=== PATIENT | male | born 1985 | race African-American/Black ===

== ENCOUNTER 2022-04-10 12:13 | Inpatient (IN) | payer MEDICARE, SELFPAY ==
--- NOTE | 2022-04-10 | ECG_ITS ---
Test Reason : CHEST PAIN Blood Pressure : / mmHG Vent. Rate : 058 BPM Atrial Rate : 058 BPM P-R Int : 180 ms QRS Dur : 094 ms QT Int : 412 ms P-R-T Axes : 052 028 006 degrees QTc Int : 404 ms Sinus bradycardia Otherwise normal ECG No previous ECGs available Referred By: Kiki Hays Electronically Signed By:LIDA KILGORE
--- NOTE | 2022-04-10 12:17 | ED.PSYCH ---
HPI - Psych General Chief Complaint: Psychiatric Symptoms Stated Complaint: SEC 12,PSYCHOSIS W/SI,NON MED COMP PER [facility] Time Seen by Provider: 04/10/22 12:16 Source: patient and EMS Mode of arrival: EMS Limitations: no limitations History of Present Illness HPI Narrative: 36-year-old male with a history of schizoaffective who presents to the ER via EMS from [facility] clinic on a section 12 for paranoia, suicidal ideation. He has been off of his psychiatric medications for an unknown amount of time. He reports voices telling him to harm himself. He is anxious and is reporting intermittent central chest pains. He states the pain started 2 days ago while watching videos on his phone. He denies SOB. He presents on a section 12 as an inpatient bed search. MD complaint: suicidal ideation Onset (ago): unknown Duration: getting worse History of same: Yes Relieving factors: none Exacerbating factors: none Context: not taking psychiatric medications Associated psychiatric symptoms: depression, suicidal ideation and auditory hallucinations Associated symptoms: insomnia and other (chest pain) Treatments prior to arrival: placed on mental health hold If self harm: admits thoughts of self harm Related Data Allergies Allergy/AdvReac Type Severity Reaction Status Date / Time No Known Allergies Allergy Verified 04/10/22 12:57 Review of Systems Review of Systems: Constitutional: No Fever, No Chills ENT/Mouth: No sore throat, No Rhinorrhea, No Swallowing Difficulty Eyes: No Eye Pain, No Swelling, No Redness Cardiovascular: + Chest Pain, No SOB, No Orthopnea, No Edema Respiratory: No Cough, No Sputum, No Wheezing, No dyspnea Gastrointestinal: No Nausea, No Vomiting, No Diarrhea, No abdominal Pain Genitourinary: No Dysuria, No Urinary Frequency, No Hematuria Musculoskeletal: No joint pain, No Myalgias Skin: No Skin Lesions, No rash Neuro: No Weakness, No Numbness, No Dizziness, No Headache Psych: + Anxiety/Panic, + Depression, +SI, +AH, No VH, No HI Heme/Lymph: No Bruising, No Lymphadenopathy Endocrine: No Polyuria, No Polydipsia PMFSH Social History Social History Advance Directives: No Advance Directives Information Provided: No Physical Exam Vital Signs: Vital Signs: Last Vital Signs Temp 97.7 F 04/10/22 14:23 Pulse 71 04/10/22 14:23 Resp 18 04/10/22 14:23 BP 154/105 H 04/10/22 14:23 Pulse Ox 98 04/10/22 14:23 O2 Del Method 04/10/22 14:23 BMI result Body Mass Index 36.7 Appearance: Alert. Oriented X3. No acute distress. Eyes: Pupils equal, round and reactive to light. ENT: Pharynx normal. Neck: Normal inspection. Neck supple. CVS: Normal heart rate and rhythm. Pulses normal. No chest wall tenderness. Respiratory: No respiratory distress. Breath sounds normal. Abdomen: Soft and nontender. +BS x4 Skin: Skin warm and dry. Normal skin color. Normal skin turgor. No rashes. Extremities: No lower extremity edema. No evidence of track bowman. Neuro: Oriented X 3. No motor deficit. No sensory deficit. CN II-XII intact. Psych: makes eye contact, cooperative, poor insight and judgment. Course Course Course Narrative: 36 y/o male with history of schizoaffective disorder noncompliant with medications recently who presents with auditory hallucinations, paranoia and suicidal ideation. He is already on a section 12 inpatient bed search. Will get EKG and medically clear. Reevaluation(s) Reevaluation #1: Troponin 5.7. EKG without ischemic changes. No need to repeat troponin given pains have been intermittent for the last 2 days. Not cardiac in nature. P.r.n. Tylenol ordered. Will place in physician observation at this time. Physician observation started at 13:52. Patient placed in physician observation because patient is a section 12 inpatient psych bed search. At the time observation was started patient's vital signs were stable. Patient is alert and oriented. Neuro exam is non-focal. CV: RRR and lungs are clear. Will continue to monitor. Time: 13:52 [facility] - Psych Medical Records Attestation: I reviewed the patient's medical records. Lab Data Attestation: I reviewed the patient's lab results. Result diagrams: 04/10/22 13:19 04/10/22 13:19 Labs: Lab Results 04/10/22 04/10/22 04/10/22 Range/Units 13:19 13:19 13:19 WBC 5.3 (4.8-10.8) X10*3/uL RBC 4.86 (4.60-5.80) X10*6/uL Hgb 15.2 (14.0-18.0) g/dl Hct 44.1 (42.0-52.0) % MCV 90.7 (80.0-98.0) fL MCH 31.3 (27.0-33.0) pg MCHC 34.5 (31.0-36.0) g/dl RDW 12.9 (11.0-16.0) % Plt Count 214 (160-400) X10*3/uL MPV 9.5 (9.4-12.4) fL Immature Gran % (Auto) 0.2 (0.0-0.4) % Neut % (Auto) 44.2 L (45-73) % Lymph % (Auto) 32.3 (20-40) % [place] % (Auto) 14.6 H (2-11) % Eos % (Auto) 7.6 H (0-4) % Baso % (Auto) 1.1 (0-2) % Lymph # (Auto) 1.7 (1.2-4.9) X10*3/uL [place] # (Auto) 0.8 (0.1-1.2) X10*3/uL Eos # (Auto) 0.4 (0.0-0.4) X10*3/uL Baso # (Auto) 0.1 (0.0-0.2) X10*3/uL Abs Immat Gran (auto) 0.01 (0.00-0.03) X10*3/uL Absolute Neuts (auto) 2.3 (2.0-8.3) x10*3/uL Absolute Nucleated RBC 0.000 (0.0-0.012) X10*3/uL Nucleated RBC % (auto) 0.0 (0.0-0.2) /100WBC Sodium 134 L (135-145) mmol/L Potassium 4.4 (3.3-5.1) mmol/L Chloride 100 (96-108) mmol/L Carbon Dioxide 26 (22-29) mmol/L Anion Gap 12 (12-20) BUN 8 L (9-16) mg/dL Creatinine 0.92 (0.5-1.4) mg/dL Estim Creat Clear Calc TNP Estimated GFR > 60 Random Glucose 96 (60-115) mg/dL Calcium 8.9 (8.4-10.2) mg/dL Magnesium 2.3 (1.6-2.6) mg/dL Total Bilirubin 0.5 (0.0-1.0) mg/dL Direct Bilirubin 0.2 (0.0-0.5) mg/dL AST 20 (5-37) U/L ALT 27 (0-40) U/L Alkaline Phosphatase 61 (39-117) U/L Troponin I High Sens (<3.5-35.0) ng/L Total Protein 7.2 (6.5-8.0) g/dL Albumin 4.2 (3.5-5.0) g/dL Urine Opiates Screen (Not Detect) Urine Fentanyl Screen (Not Detect) Ur Barbiturates Screen (Not Detect) Ur Phencyclidine Scrn (Not Detect) Ur Amphetamines Screen (Not Detect) U Benzodiazepines Scrn (Not Detect) Urine Cocaine Screen (Not Detect) U Marijuana (THC) Screen (Not Detect) Ethyl Alcohol mg/dL COVID-19 ([facility]) Negative (Negative) COVID-19 Clin Com See Note 04/10/22 04/10/22 04/10/22 Range/Units 13:19 13:19 13:19 WBC (4.8-10.8) X10*3/uL RBC (4.60-5.80) X10*6/uL Hgb (14.0-18.0) g/dl Hct (42.0-52.0) % MCV (80.0-98.0) fL MCH (27.0-33.0) pg MCHC (31.0-36.0) g/dl RDW (11.0-16.0) % Plt Count (160-400) X10*3/uL MPV (9.4-12.4) fL Immature Gran % (Auto) (0.0-0.4) % Neut % (Auto) (45-73) % Lymph % (Auto) (20-40) % [place] % (Auto) (2-11) % Eos % (Auto) (0-4) % Baso % (Auto) (0-2) % Lymph # (Auto) (1.2-4.9) X10*3/uL [place] # (Auto) (0.1-1.2) X10*3/uL Eos # (Auto) (0.0-0.4) X10*3/uL Baso # (Auto) (0.0-0.2) X10*3/uL Abs Immat Gran (auto) (0.00-0.03) X10*3/uL Absolute Neuts (auto) (2.0-8.3) x10*3/uL Absolute Nucleated RBC (0.0-0.012) X10*3/uL Nucleated RBC % (auto) (0.0-0.2) /100WBC Sodium (135-145) mmol/L Potassium (3.3-5.1) mmol/L Chloride (96-108) mmol/L Carbon Dioxide (22-29) mmol/L Anion Gap (12-20) BUN (9-16) mg/dL Creatinine (0.5-1.4) mg/dL Estim Creat Clear Calc Estimated GFR Random Glucose (60-115) mg/dL Calcium (8.4-10.2) mg/dL Magnesium (1.6-2.6) mg/dL Total Bilirubin (0.0-1.0) mg/dL Direct Bilirubin (0.0-0.5) mg/dL AST (5-37) U/L ALT (0-40) U/L Alkaline Phosphatase (39-117) U/L Troponin I High Sens 5.7 (<3.5-35.0) ng/L Total Protein (6.5-8.0) g/dL Albumin (3.5-5.0) g/dL Urine Opiates Screen Not Detected (Not Detect) Urine Fentanyl Screen Not Detected (Not Detect) Ur Barbiturates Screen Not Detected (Not Detect) Ur Phencyclidine Scrn Not Detected (Not Detect) Ur Amphetamines Screen Not Detected (Not Detect) U Benzodiazepines Scrn Not Detected (Not Detect) Urine Cocaine Screen Not Detected (Not Detect) U Marijuana (THC) Screen POSITIVE H (Not Detect) Ethyl Alcohol < 10 mg/dL COVID-19 ([facility]) (Negative) COVID-19 Clin Com ECG Data Attestation: I personally reviewed and interpreted this ECG as follows: ECG interpretation date: 04/10/22 ECG interpretation time: 13:53 Interpretation: Sinus bradycardia, heart rate 58 beats per minute, normal [place] interval, no ST segment elevations or depressions. Isolated T-wave inversion in lead 3 only Critical Care Time Critical Care Time Critical Care Time: No Discharge Plan Discharge Clinical Impression: Schizoaffective disorder Patient Disposition: Still a Patient
[2022-04-10 13:25] LABS: MANUAL DIFF FLAG NO
[2022-04-10 13:27] LABS: Basophils Absolute Auto 0.1 X10*3/uL (0.0-0.2); Basophils Percent Auto 1.1 % (0-2); Eosinophils Absolute Auto 0.4 X10*3/uL (0.0-0.4); Eosinophils Percent Auto 7.6 % (0-4); Hematocrit 44.1 % (42.0-52.0); Hemoglobin 15.2 g/dl (14.0-18.0); Imm Gran Abs Auto 0.01 X10*3/uL (0.00-0.03); Imm Gran Pct Auto 0.2 % (0.0-0.4); Lymphocytes Absolute Auto 1.7 X10*3/uL (1.2-4.9); Lymphocytes Percent Auto 32.3 % (20-40); Mean Corpuscular HGB Conc 34.5 g/dl (31.0-36.0); Mean Corpuscular Hemoglobin 31.3 pg (27.0-33.0); Mean Corpuscular Volume 90.7 fL (80.0-98.0); Mean Platelet Volume 9.5 fL (9.4-12.4); Monocytes Absolute Auto 0.8 X10*3/uL (0.1-1.2); Monocytes Percent Auto 14.6 % (2-11); Neutrophils Absolute Auto 2.3 x10*3/uL (2.0-8.3); Neutrophils Percent Auto 44.2 % (45-73); Platelet Count 214 X10*3/uL (160-400); Red Blood Count 4.86 X10*6/uL (4.60-5.80); Red Cell Distribution Width 12.9 % (11.0-16.0); White Blood Count 5.3 X10*3/uL (4.8-10.8)
[2022-04-10 13:40] LABS: COVID-19 Test Negative (Negative); Ethanol < 10 mg/dL; IDNOW Serial# 16C4AD1C
[2022-04-10 13:41] LABS: Amphetamine Screen Urine Not Detected (Not Detect); Barbiturates, Urine Not Detected (Not Detect); Benzodiazepines Screen Urine Not Detected (Not Detect); Cannabinoid Screen Urine POSITIVE (Not Detect); Cocaine Screen Urine Not Detected (Not Detect); Fentanyl, urine Not Detected (Not Detect); Opiate Screen Urine Not Detected (Not Detect); Phencyclidine Screen Urine Not Detected (Not Detect)
[2022-04-10 13:43] LABS: Alanine Aminotransferase 27 U/L (0-40); Albumin Level 4.2 g/dL (3.5-5.0); Alkaline Phosphatase 61 U/L (39-117); Anion Gap 12 (12-20); Aspartate Amino Transferase 20 U/L (5-37); Bilirubin Direct 0.2 mg/dL (0.0-0.5); Bilirubin Total 0.5 mg/dL (0.0-1.0); Blood Urea Nitrogen 8 mg/dL (9-16); Calcium 8.9 mg/dL (8.4-10.2); Carbon Dioxide 26 mmol/L (22-29); Chloride 100 mmol/L (96-108); Estimated Glomerular Filt Rate > 60; Glucose Random 96 mg/dL (60-115); Magnesium 2.3 mg/dL (1.6-2.6); Potassium 4.4 mmol/L (3.3-5.1); Sodium 134 mmol/L (135-145); Total Protein 7.2 g/dL (6.5-8.0)
[2022-04-10 13:47] LABS: Troponin-I High Sensitivity 5.7 ng/L (<3.5-35.0)
[2022-04-10 14:23] VITALS: BP 154/105; BP 184/114; PULSE 71; PULSE 84; RESP 18; TEMP 36.5; O2SAT 97; O2SAT 98; BMI 36.7
--- NOTE | 2022-04-10 16:29 | MHC.CARE ---
Call from Kiki from the [facility] program, wanted to make sure her # is available [phone]
--- NOTE | 2022-04-10 16:54 | PHA.MEDREC ---
Pharmacy Consult ? Medication Reconciliation Pharmacy has completed the medication reconciliation. Pt states he only takes Cogentin and took his last dose yesterday 04/09/22.
--- NOTE | 2022-04-10 18:15 | PC.NURSE ---
Nurse to Nurse given to m3 rn
[2022-04-10 18:31] VITALS: BP 172/108; PULSE 59; RESP 16; TEMP 36.2; O2SAT 100
--- NOTE | 2022-04-10 19:33 | PC.ADMIT ---
Nursing Admission Note Toribio is a 36-year-old male who was evaluated by [facility] then referred to [facility] due to concerns of decompensation and psychosis. CV was signed and placed in chart. Pt endorses smoking marijuana daily to help with anxiety and sleep, tox screen was positive for marijuana. Pt said he smokes 2 cigarettes per day and is not interested in nicotine replacement. Per crisis eval, pt has been non-compliant with medication for the past few months. He reports seeing black shadow figures and hearing voices that are telling him to cut off his fingers/other limbs. Pt also reports difficulty with memory and concentration. Pt has a history of aggressive behaviors and past suicide attempts (cutting wrists and jumping off bridges). Pt has a history of being incarcerated [id number] for resisting arrest, carrying a dangerous weapon, violation of probation, and exposing himself in public. He was also incarcerated [id number] for charges of a stolen bike, reckless driving, and operation of a vehicle without documentation. During admission assessment, Toribio's speech was pressured, eye contact avoidant. He would frequently put his hands to his ears. Per crisis eval, pt's been having hearing problems in one of his ears where he hears loud noises then nothing at all. Pt was otherwise pleasant and cooperative upon approach. He denies SI/HI at this time but will reach out to staff if those thoughts occur.
--- NOTE | 2022-04-10 20:54 | P.HPPS_ITS ---
HPI Date of Service: 04/10/22 Chief Complaint: schizoaffective DO Sources of Information: patient interviewed, chart reviewed and crisis/core team assessment reviewed HPI Subjective Notes: Chairez Warning and Conditional Voluntary Healthcare Proxy: No Guardianship: No Medical Problems Affecting Mental Status: No Narrative: Toribio is a 36 y.o. Male who carries a dx of schizoaffective DO, depressive type. He presented to [facility] crisis on 04/10/22 after his provider from his PA[facility] program called requesting an assessment due to pt presenting as paranoid, psychotic, not taking his medication, and hearing voices telling him to cut off his fingers and other limbs. Pt has been non-adherent with risperdal for 4-5 months. No Familia?s Order. Historically, pt is higher functioning on antipsychotic medication, i.e. good with paying rent and child support, but recently he has n ot paid his rent.? I evaluated the pt this evening and upon interview he reports he is still hearin g voices. He is ?tired, I just wanna lay down.? Declines to engage in interview. Says he feels safe, denies SI/SIB. Sleep has been ?alright.? Mood is ?alright.?? Past Psychiatric History: -Has hx of impulsive suicide attempt- jumped off [employer] [address] and another time was found walking on railroad tracks disorganized and delusional with SI. -Past med trials: Haldol, perphenazine, Abilify and Risperdal (TD, grimace that involved his lower lip), Ingrezza (insomnia and headaches), Zyprexa (GI side effects) -Hx of multiple psych admissions, last [facility] 12/01/2017-12/24/2017, [facility] 07/08/2017-07/14/2017, [facility] [id number], [facility] 07/22/2007-08/17/2007 Medical Evaluation Reviewed: Yes [facility] Narrative: -Hx of Psoriasis. Pt reported hearing problems in one of his ears where he hears loud noises and then nothing at all. Social History: -Pt rents a room at a house with two other people. -Pt has two children, ages 14 and 17, minimal contact with them. -Graduated from [employer] in [place], [place]. Attended [employer] -Hx of being employed at [employer], and [employer]. Currently not working but engages in recreational activities with the [facility] program. -Hx of incarceration 09/06/2016- 12/16/2018 for resisting arrest, carrying a dangerous weapon, violation of probation, and open lewd behavior (exposing himself). He was also incarcerated 11/02/2006-11/02/2007 for charges of a stolen bike, reckless driving, and operation of vehicle without documentation. -Hx of his child's mother filing a restraining order against him in July 2020 Substance History: -Cannabis: Used cannabis two days ago to help with the voices . -Alcohol: denies abuse, last drank maybe two days ago . -Hx of crack cocaine use. Trauma History: -Pt father left the family when he was young and when he was in elementary school Diagnostics Vital Signs (24Hr): Vital Signs - 24 hr 04/10/22 14:23 04/10/22 18:31 Temperature 97.7 F 97.2 F Pulse Rate 71 59 Respiratory Rate 18 16 Blood Pressure 154/105 H 172/108 H Pulse Oximetry 98 100 Oxygen Delivery Method Room Air Room Air BMI result Body Mass Index 36.7 Labs Results: 04/10/22 13:19 04/11/22 07:16 Labs: Laboratory Results - last 48 hr 04/10/22 04/10/22 04/10/22 13:19 13:19 13:19 WBC 5.3 RBC 4.86 Hgb 15.2 Hct 44.1 MCV 90.7 MCH 31.3 MCHC 34.5 RDW 12.9 Plt Count 214 MPV 9.5 Immature Gran % (Auto) 0.2 Neut % (Auto) 44.2 L Lymph % (Auto) 32.3 [place] % (Auto) 14.6 H Eos % (Auto) 7.6 H Baso % (Auto) 1.1 Lymph # (Auto) 1.7 [place] # (Auto) 0.8 Eos # (Auto) 0.4 Baso # (Auto) 0.1 Abs Immat Gran (auto) 0.01 Absolute Neuts (auto) 2.3 Absolute Nucleated RBC 0.000 Nucleated RBC % (auto) 0.0 Sodium 134 L Potassium 4.4 Chloride 100 Carbon Dioxide 26 Anion Gap 12 BUN 8 L Creatinine 0.92 Estim Creat Clear Calc TNP Estimated GFR > 60 Random Glucose 96 Calcium 8.9 Magnesium 2.3 Total Bilirubin 0.5 Direct Bilirubin 0.2 AST 20 ALT 27 Alkaline Phosphatase 61 Troponin I High Sens Total Protein 7.2 Albumin 4.2 Urine Opiates Screen Urine Fentanyl Screen Ur Barbiturates Screen Ur Phencyclidine Scrn Ur Amphetamines Screen U Benzodiazepines Scrn Urine Cocaine Screen U Marijuana (THC) Screen Ethyl Alcohol COVID-19 ([facility]) Negative COVID-19 Clin Com See Note 04/10/22 04/10/22 04/10/22 13:19 13:19 13:19 WBC RBC Hgb Hct MCV MCH MCHC RDW Plt Count MPV Immature Gran % (Auto) Neut % (Auto) Lymph % (Auto) [place] % (Auto) Eos % (Auto) Baso % (Auto) Lymph # (Auto) [place] # (Auto) Eos # (Auto) Baso # (Auto) Abs Immat Gran (auto) Absolute Neuts (auto) Absolute Nucleated RBC Nucleated RBC % (auto) Sodium Potassium Chloride Carbon Dioxide Anion Gap BUN Creatinine Estim Creat Clear Calc Estimated GFR Random Glucose Calcium Magnesium Total Bilirubin Direct Bilirubin AST ALT Alkaline Phosphatase Troponin I High Sens 5.7 Total Protein Albumin Urine Opiates Screen Not Detected Urine Fentanyl Screen Not Detected Ur Barbiturates Screen Not Detected Ur Phencyclidine Scrn Not Detected Ur Amphetamines Screen Not Detected U Benzodiazepines Scrn Not Detected Urine Cocaine Screen Not Detected U Marijuana (THC) Screen POSITIVE H Ethyl Alcohol < 10 COVID-19 ([facility]) COVID-19 Clin Com Meds/Allergies Meds Home Medications Medication Instructions Recorded Confirmed Type benztropine 1 mg tablet 1 tab PO BID 04/10/22 04/10/22 History Allergies Allergies Allergy/AdvReac Type Severity Reaction Status Date / Time No Known Allergies Allergy Verified 04/10/22 12:57 Mental Status Exam Mental Status Exam Narrative: A&O. Laying down in bed, in hospital attire, overweight. Poor eye contact, inattentive. No Tics or Tremors. No abnormal involuntary movements. Calm, but did not want to engage due to feeling tired. Non-pressured speech, spontaneous with regular rate and rhythm, normal volume and prosody. No prolonged speech latency or dysarthria. Mood is ?tired,? affect is flat. Denies SI/SIB/HI upon inquiry. Endorses command AH telling him to self harm, denies VH or delusional thought content. Thoughts are perseverative, distracted. No known cognitive or memory impairment. Insight/ Judgment limited but adequate. Assessment & Plan Assessment & Plan (1) Schizoaffective disorder, depressive type: Status: Acute Code(s): F25.1 - Schizoaffective disorder, depressive type Plan Toribio is a 36 y.o. Male who carries a dx of schizoaffective DO, depressive type. He presented to [facility] crisis on 04/10/22 after his provider from his PA[facility] program called requesting an assessment due to pt presenting as paranoid, psychotic, not taking his medication, and hearing voices telling him to cut off his fingers and other limbs. Pt has been non-adherent with risperdal for 4-5 months. No Familia?s Order. Historically, pt is higher functioning on antipsychotic medication, i.e. good with paying rent and child support, but recently he has not paid his rent.? Plan: Pt reports hx of adverse effects on antipsychotic medication. Says he has been on cogentin and he believes this helps with sleep. Willing to restart thorazine 100 mg QHS.? Q15 min safety checks, CV Monitor response to medications. Monitor for safety in the milieu. Discharge on stabilization. Patient seen. Chart reviewed. Discussed with team. Obtain collateral contact info?as needed Patient educated on: medication risk/benefits Reason for continued inpatient stay Substantial Risk for: harm to self, inability to function, rapid decompensation and med/psych decompensation
[2022-04-10] MEDS: chlorproMAZINE HCl 100 MG TABLET PO (21:12)
[2022-04-10] MEDS: traZODone HCL 50 MG TABLET PO (21:12)
[2022-04-10] MEDS: Benztropine Mesylate 1 MG TABLET PO (21:12)
[2022-04-10] MEDS: cloNIDine HCL 0.1 MG TABLET PO (21:16)
--- NOTE | 2022-04-11 | ECG_ITS ---
Test Reason : htn Blood Pressure : / mmHG Vent. Rate : 057 BPM Atrial Rate : 057 BPM P-R Int : 160 ms QRS Dur : 102 ms QT Int : 414 ms P-R-T Axes : 051 026 -02 degrees QTc Int : 402 ms Sinus bradycardia Otherwise normal ECG When compared with ECG of 10-APR-2022 12:55, No significant change was found Referred By: Nhan Zhou Electronically Signed By:LIDA KILGORE
[2022-04-11 07:52] LABS: Estimated Average Glucose 128 mg/dL; Hemoglobin A1c % 6.1 %
[2022-04-11 08:06] LABS: Alanine Aminotransferase 29 U/L (0-40); Albumin Level 4.3 g/dL (3.5-5.0); Alkaline Phosphatase 66 U/L (39-117); Anion Gap 14 (12-20); Aspartate Amino Transferase 20 U/L (5-37); Bilirubin Total 0.5 mg/dL (0.0-1.0); Blood Urea Nitrogen 11 mg/dL (9-16); Carbon Dioxide 28 mmol/L (22-29); Chloride 99 mmol/L (96-108); Cholesterol 209 mg/dL; Creatinine Clr Calc Pharmacy 141.1; Estimated Glomerular Filt Rate > 60; Glucose Fasting 105 mg/dL (60-99); HDL Cholesterol 40 mg/dL; Magnesium 2.1 mg/dL (1.6-2.6); Potassium 4.3 mmol/L (3.3-5.1); Sodium 137 mmol/L (135-145); Total Protein 7.6 g/dL (6.5-8.0); Triglycerides 532 mg/dL
[2022-04-11 08:23] VITALS: BP 137/93; PULSE 75; RESP 16; TEMP 36.6; O2SAT 99
[2022-04-11 08:23] LABS: Free T4 (Free Thyroxine) 0.84 ng/dL (0.71-1.85); Thyroid Stimulating Hormone 4.79 uIU/mL (0.32-4.0)
[2022-04-11 08:55] LABS: Folate 11.4 ng/mL (> or = 4.0); Vitamin B12 201 pg/mL (200-900)
[2022-04-11 10:12] VITALS: BP 165/106; PULSE 64
[2022-04-11] MEDS: Benztropine Mesylate 1 MG TABLET PO ×2 (10:15→22:20)
[2022-04-11] MEDS: cloNIDine HCL 0.1 MG TABLET PO ×3 (10:15→15:26)
[2022-04-11] MEDS: chlorproMAZINE HCl 100 MG TABLET PO ×2 (12:29→22:20)
[2022-04-11 15:15] VITALS: BP 182/102
--- NOTE | 2022-04-11 16:05 | HO.PSYCHPN ---
Subjective Subjective Date of Service: 04/11/22 Reason For Visit: schizoaffective DO Interim History: pt calm, cooperative, pleasant. asking for hydrocortisone for hand psoriasis. 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 feels he is in a good mood, still having some thoughts of cutting part of his finger off due to pain which he associates with the psoriasis. reports some illusions of black figures moving in his peripheral vision, nothing there when he turns to look directly. clonidine increased from 0.1 TID to 0.2 TID due to persistent HTN. thorazine doubled today to 100 BID. hydrocortisone and lozenges started. discuss elevated TSH. per staff, presented pressured with poor eye contact, AH, cooperative. per staff, pt did not sleep at all overnight. Mental Status Exam Mental Status Exam Narrative: large, tall man. adequately dressed in hospital clothes. cooperative. no PMA/PMR. speech nml in rate, amount, loudness, tone, latency. thoughts linear and logical, affect full range and normointense. mood very good. endorses AH and SIBI, illusions. denies HI/VH. Diagnostics Vital Signs (24Hr): Vital Signs - 24 hr 04/10/22 18:31 04/11/22 08:23 04/11/22 10:12 Temperature 97.2 F 97.9 F Pulse Rate 59 75 64 Respiratory Rate 16 16 Blood Pressure 172/108 H 137/93 H 165/106 H Pulse Oximetry 100 99 Oxygen Delivery Method Room Air Room Air 04/11/22 15:15 Temperature Pulse Rate Respiratory Rate Blood Pressure 182/102 H Pulse Oximetry Oxygen Delivery Method BMI result Body Mass Index 36.7 Labs Results: 04/10/22 13:19 04/11/22 07:16 Labs: Laboratory Results - last 48 hr 04/10/22 04/10/22 04/10/22 13:19 13:19 13:19 WBC 5.3 RBC 4.86 Hgb 15.2 Hct 44.1 MCV 90.7 MCH 31.3 MCHC 34.5 RDW 12.9 Plt Count 214 MPV 9.5 Immature Gran % (Auto) 0.2 Neut % (Auto) 44.2 L Lymph % (Auto) 32.3 Isabella % (Auto) 14.6 H Eos % (Auto) 7.6 H Baso % (Auto) 1.1 Lymph # (Auto) 1.7 Isabella # (Auto) 0.8 Eos # (Auto) 0.4 Baso # (Auto) 0.1 Abs Immat Gran (auto) 0.01 Absolute Neuts (auto) 2.3 Absolute Nucleated RBC 0.000 Nucleated RBC % (auto) 0.0 Sodium 134 L Potassium 4.4 Chloride 100 Carbon Dioxide 26 Anion Gap 12 BUN 8 L Creatinine 0.92 Estim Creat Clear Calc TNP Estimated GFR > 60 Random Glucose 96 Fasting Glucose Estimat Average Glucose Hemoglobin A1c % Calcium 8.9 Magnesium 2.3 Total Bilirubin 0.5 Direct Bilirubin 0.2 AST 20 ALT 27 Alkaline Phosphatase 61 Troponin I High Sens Total Protein 7.2 Albumin 4.2 Triglycerides Cholesterol LDL Cholesterol, Calc HDL Cholesterol Vitamin B12 Folate TSH Free T4 Urine Opiates Screen Urine Fentanyl Screen Ur Barbiturates Screen Ur Phencyclidine Scrn Ur Amphetamines Screen U Benzodiazepines Scrn Urine Cocaine Screen U Marijuana (THC) Screen Ethyl Alcohol COVID-19 ([facility]) Negative COVID-19 Clin Com See Note 04/10/22 04/10/22 04/10/22 13:19 13:19 13:19 WBC RBC Hgb Hct MCV MCH MCHC RDW Plt Count MPV Immature Gran % (Auto) Neut % (Auto) Lymph % (Auto) Isabella % (Auto) Eos % (Auto) Baso % (Auto) Lymph # (Auto) Isabella # (Auto) Eos # (Auto) Baso # (Auto) Abs Immat Gran (auto) Absolute Neuts (auto) Absolute Nucleated RBC Nucleated RBC % (auto) Sodium Potassium Chloride Carbon Dioxide Anion Gap BUN Creatinine Estim Creat Clear Calc Estimated GFR Random Glucose Fasting Glucose Estimat Average Glucose Hemoglobin A1c % Calcium Magnesium Total Bilirubin Direct Bilirubin AST ALT Alkaline Phosphatase Troponin I High Sens 5.7 Total Protein Albumin Triglycerides Cholesterol LDL Cholesterol, Calc HDL Cholesterol Vitamin B12 Folate TSH Free T4 Urine Opiates Screen Not Detected Urine Fentanyl Screen Not Detected Ur Barbiturates Screen Not Detected Ur Phencyclidine Scrn Not Detected Ur Amphetamines Screen Not Detected U Benzodiazepines Scrn Not Detected Urine Cocaine Screen Not Detected U Marijuana (THC) Screen POSITIVE H Ethyl Alcohol < 10 COVID-19 ([facility]) COVID-19 Clin Com 04/11/22 04/11/22 04/11/22 07:16 07:16 07:16 WBC RBC Hgb Hct MCV MCH MCHC RDW Plt Count MPV Immature Gran % (Auto) Neut % (Auto) Lymph % (Auto) Isabella % (Auto) Eos % (Auto) Baso % (Auto) Lymph # (Auto) Isabella # (Auto) Eos # (Auto) Baso # (Auto) Abs Immat Gran (auto) Absolute Neuts (auto) Absolute Nucleated RBC Nucleated RBC % (auto) Sodium 137 Potassium 4.3 Chloride 99 Carbon Dioxide 28 Anion Gap 14 BUN 11 Creatinine 0.97 Estim Creat Clear Calc 141.1 Estimated GFR > 60 Random Glucose Fasting Glucose 105 H Estimat Average Glucose 128 Hemoglobin A1c % 6.1 Calcium 10.0 D Magnesium 2.1 Total Bilirubin 0.5 Direct Bilirubin AST 20 ALT 29 Alkaline Phosphatase 66 Troponin I High Sens Total Protein 7.6 Albumin 4.3 Triglycerides 532 Cholesterol 209 LDL Cholesterol, Calc TNP HDL Cholesterol 40 Vitamin B12 201 Folate 11.4 TSH 4.79 H Free T4 0.84 Urine Opiates Screen Urine Fentanyl Screen Ur Barbiturates Screen Ur Phencyclidine Scrn Ur Amphetamines Screen U Benzodiazepines Scrn Urine Cocaine Screen U Marijuana (THC) Screen Ethyl Alcohol COVID-19 ([facility]) COVID-19 Clin Com Medications Medications Current Medications Acetaminophen (Acetaminophen 325 Mg Tablet) 975 mg PO Q6H PRN PRN Reason: mild pain Acetaminophen (Acetaminophen 325 Mg Tablet) 650 mg PO Q6H PRN PRN Reason: Headache/Pain Mild Scale (1-3) Al Hydroxide/Mg Hydroxide (Magnesium Hydrox/Alum Hydrox 30 Ml Oral.Susp) 30 ml PO Q6H PRN PRN Reason: Heartburn/Nausea Benzocaine (Throat Lozenge, Medicated Lozenge) 1 lozenge MUCOUS MEM Q2H PRN PRN Reason: Sore Throat or dry throat Benztropine Mesylate (Benztropine Mesylate 1 Mg Tablet) 1 mg PO BID [facility] Last Admin: 04/11/22 10:15 Dose: 1 mg Chlorpromazine HCl (Chlorpromazine Hcl 100 Mg Tablet) 100 mg PO BID [facility] Last Admin: 04/11/22 12:29 Dose: 100 mg Clonidine HCl (Clonidine Hcl 0.2 Mg Tablet) 0.2 mg PO TID [facility]; Protocol Hydrocortisone (Hydrocortisone 1 % Cream 28.35 Gm Tube) 1 appl TOPICAL BID [facility]; Protocol Hydroxyzine HCl (Hydroxyzine Hcl 25 Mg Tablet) 25 mg PO Q6H PRN PRN Reason: Anxiety Levothyroxine Sodium (Levothyroxine Sodium 25 Mcg Tablet) 25 mcg PO DAILY@0600 [facility] Magnesium Hydroxide (Milk Of Magnesia 30 Ml Oral.Susp) 30 ml PO DAILY PRN PRN Reason: Constipation Trazodone HCl (Trazodone Hcl 50 Mg Tablet) 50 mg PO BEDTIME PRN PRN Reason: Insomnia Last Admin: 04/10/22 21:12 Dose: 50 mg Allergies Allergies Allergy/AdvReac Type Severity Reaction Status Date / Time No Known Allergies Allergy Verified 04/10/22 12:57 Assessment & Plan Assessment & Plan (1) Schizoaffective disorder: Status: Acute Code(s): F25.9 - Schizoaffective disorder, unspecified (2) Thyroid activity decreased: Status: Acute Code(s): E03.9 - Hypothyroidism, unspecified Plan increased thorazine from 100 mg QHS to 100 mg BID 04/11 for psychosis. hydrocortisone for hand psoriasis cepacol lozenges for dry mucous membranes synthroid 25 mcg daily for subclinical hypothyroidism monitor sleep and more aggressively approach insomnia if pt does not begin to sleep better. I spent ___35___ minutes with the patient and/or on the patient floor today, greater than?50% of which was spent counseling/coordinating care. Reason for contiued inpatient stay Substantial Risk for: harm to self, inability to function and rapid decompensation
[2022-04-11 16:15] VITALS: BP 152/89; PULSE 80
[2022-04-11] MEDS: Levothyroxine Sodium 25 MCG TABLET PO (16:44)
[2022-04-11 22:12] VITALS: BP 137/94; PULSE 79; RESP 18; TEMP 36.7; O2SAT 98
[2022-04-11] MEDS: Hydrocortisone 1 % Cream 28.35 GM TUBE 1 APPL TOPICAL (22:19)
[2022-04-11] MEDS: hydrOXYzine HCL 25 MG TABLET PO (22:20)
[2022-04-11] MEDS: cloNIDine HCL 0.2 MG TABLET PO (22:20)
[2022-04-11] MEDS: traZODone HCL 50 MG TABLET PO (22:21)
[2022-04-12] MEDS: Levothyroxine Sodium 25 MCG TABLET PO (06:02)
--- NOTE | 2022-04-12 07:21 | P.PNPSI_ITS ---
Subjective Subjective Date of Service: 04/12/22 Reason For Visit: schizoaffective DO Subjective Notes: Conditional Voluntary Interim History: Pt pleasant and polite on approach. he reports hearing voices telling him to hurt himself. He denies any plan or intent to hurt hhimself. He is taking thorazine, asked if he wanted increase in nighttime dose but he declines. He continues to walk in [place] talking to voices at times loud but able to be redirected. No behavioral concerns. 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 Laying down in bed, in hospital attire, overweight. Poor eye contact, inattentive. No Tics or Tremors. No abnormal involuntary movements. Calm, but did not want to engage due to feeling tired. Non-pressured speech, spontaneous with regular rate and rhythm, normal volume and prosody. No prolonged speech latency or dysarthria. Mood is ?tired,? affect is flat. Denies SI/SIB/HI upon inquiry. Endorses command AH telling him to self harm, denies VH or delusional thought content. Thoughts are perseverative, distracted. No known cognitive or memory impairment. Insight/ Judgment limited but adequate. Diagnostics Vital Signs (24Hr): Vital Signs - 24 hr 04/13/22 21:00 Temperature 97.8 F Pulse Rate 104 H Respiratory Rate 16 Blood Pressure 144/89 H Pulse Oximetry 99 Oxygen Delivery Method Room Air BMI result Body Mass Index 36.7 Labs Results: 04/10/22 13:19 04/11/22 07:16 Medications Medications Current Medications Acetaminophen (Acetaminophen 325 Mg Tablet) 975 mg PO Q6H PRN PRN Reason: mild pain Al Hydroxide/Mg Hydroxide (Magnesium Hydrox/Alum Hydrox 30 Ml Oral.Susp) 30 ml PO Q6H PRN PRN Reason: Heartburn/Nausea Benzocaine (Throat Lozenge, Medicated Lozenge) 1 lozenge MUCOUS MEM Q2H PRN PRN Reason: Sore Throat or dry throat Benztropine Mesylate (Benztropine Mesylate 1 Mg Tablet) 1 mg PO BID [facility] Last Admin: 04/13/22 21:00 Dose: 1 mg Chlorpromazine HCl (Chlorpromazine Hcl 100 Mg Tablet) 100 mg PO BID [facility] Last Admin: 04/13/22 21:01 Dose: 100 mg Clonidine HCl (Clonidine Hcl 0.2 Mg Tablet) 0.2 mg PO TID [facility]; Protocol Last Admin: 04/13/22 21:00 Dose: 0.2 mg Hydrocortisone (Hydrocortisone 1 % Cream 28.35 Gm Tube) 1 appl TOPICAL BID [facility]; Protocol Last Admin: 04/13/22 22:13 Dose: Not Given Hydroxyzine HCl (Hydroxyzine Hcl 25 Mg Tablet) 25 mg PO Q6H PRN PRN Reason: Anxiety Last Admin: 04/12/22 21:03 Dose: 25 mg Levothyroxine Sodium (Levothyroxine Sodium 25 Mcg Tablet) 25 mcg PO DAILY@0600 [facility] Last Admin: 04/13/22 05:51 Dose: 25 mcg Magnesium Hydroxide (Milk Of Magnesia 30 Ml Oral.Susp) 30 ml PO DAILY PRN PRN Reason: Constipation Trazodone HCl (Trazodone Hcl 50 Mg Tablet) 50 mg PO BEDTIME PRN PRN Reason: Insomnia Last Admin: 04/12/22 21:03 Dose: 50 mg Allergies Allergies Allergy/AdvReac Type Severity Reaction Status Date / Time No Known Allergies Allergy Verified 04/10/22 12:57 Assessment & Plan Assessment & Plan (1) Schizoaffective disorder, depressive type: Status: Acute Code(s): F25.1 - Schizoaffective disorder, depressive type Plan Toribio is a 36 y.o. Male who carries a dx of schizoaffective DO, depressive type. He presented to [facility] crisis on 04/10/22 after his provider from his PACT program called requesting an assessment due to pt presenting as paranoid, psychotic, not taking his medication, and hearing voices telling him to cut off his fingers and other limbs. Pt has been non-adherent with risperdal for 4-5 months. No Familia?s Order. Historically, pt is higher functioning on antipsychotic medication, i.e. good with paying rent and child support, but recently he has not paid his rent.? Plan: Pt reports hx of adverse effects on antipsychotic medication. Says he has been on cogentin and he believes this helps with sleep. Willing to restart thorazine 100 mg QHS.? Q15 min safety checks, CV Monitor response to medications. Monitor for safety in the milieu. Discharge on stabilization. Patient seen. Chart reviewed. Discussed with team. Obtain collateral contact info?as needed 04/12 continue current tx. per Alta Kaba from [facility] pt with hx of TD with risperidone, used to be on ingrezza. I spent minutes with the patient and/or on the patient floor today, greater than?50% of which was spent counseling/coordinating care. Reason for contiued inpatient stay Substantial Risk for: inability to function
[2022-04-12 08:00] VITALS: BP 130/82; PULSE 74; RESP 16; TEMP 36.4; O2SAT 98
[2022-04-12] MEDS: Benztropine Mesylate 1 MG TABLET PO ×2 (08:48→21:03)
[2022-04-12] MEDS: cloNIDine HCL 0.2 MG TABLET PO ×3 (08:48→21:02)
[2022-04-12] MEDS: chlorproMAZINE HCl 100 MG TABLET PO ×2 (08:48→21:02)
[2022-04-12] MEDS: Hydrocortisone 1 % Cream 28.35 GM TUBE 1 APPL TOPICAL ×2 (08:49→21:02)
[2022-04-12 21:00] VITALS: BP 143/89; PULSE 88; RESP 18; TEMP 36.7; O2SAT 99
[2022-04-12] MEDS: hydrOXYzine HCL 25 MG TABLET PO (21:03)
[2022-04-12] MEDS: traZODone HCL 50 MG TABLET PO (21:03)
[2022-04-13] MEDS: Levothyroxine Sodium 25 MCG TABLET PO (05:51)
[2022-04-13 06:00] VITALS: BP 129/89; PULSE 92; RESP 18; TEMP 36.6; O2SAT 96
[2022-04-13] MEDS: cloNIDine HCL 0.2 MG TABLET PO ×3 (07:53→21:00)
[2022-04-13] MEDS: chlorproMAZINE HCl 100 MG TABLET PO ×2 (07:54→21:01)
[2022-04-13] MEDS: Benztropine Mesylate 1 MG TABLET PO ×2 (07:54→21:00)
[2022-04-13] MEDS: Hydrocortisone 1 % Cream 28.35 GM TUBE 1 APPL TOPICAL (07:55)
--- NOTE | 2022-04-13 10:23 | P.PNPSI_ITS ---
Subjective Subjective Date of Service: 04/13/22 Reason For Visit: schizoaffective DO Interim History: Pt continues to talk to voices most of the time. He reports voices continue to cause significant distress as they are telling him to hurt himself but he denies any plan or intent to do so. At times seen yelling at voices telling them to stop. He declines increase in dose of thorazine at this point. 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 Laying down in bed, in hospital attire, overweight. Poor eye contact, inattentive. No Tics or Tremors. No abnormal involuntary movements. Calm, but did not want to engage due to feeling tired. Non-pressured speech, spontaneous with regular rate and rhythm, normal volume and prosody. No prolonged speech latency or dysarthria. Mood is ?tired,? affect is flat. Denies SI/SIB/HI upon inquiry. Endorses command AH telling him to self harm, denies VH or delusional thought content. Thoughts are perseverative, distracted. No known cognitive or memory impairment. Insight/ Judgment limited but adequate. Diagnostics Vital Signs (24Hr): Vital Signs - 24 hr 04/13/22 21:00 Temperature 97.8 F Pulse Rate 104 H Respiratory Rate 16 Blood Pressure 144/89 H Pulse Oximetry 99 Oxygen Delivery Method Room Air BMI result Body Mass Index 36.7 Labs Results: 04/10/22 13:19 04/11/22 07:16 Medications Medications Current Medications Acetaminophen (Acetaminophen 325 Mg Tablet) 975 mg PO Q6H PRN PRN Reason: mild pain Al Hydroxide/Mg Hydroxide (Magnesium Hydrox/Alum Hydrox 30 Ml Oral.Susp) 30 ml PO Q6H PRN PRN Reason: Heartburn/Nausea Benzocaine (Throat Lozenge, Medicated Lozenge) 1 lozenge MUCOUS MEM Q2H PRN PRN Reason: Sore Throat or dry throat Benztropine Mesylate (Benztropine Mesylate 1 Mg Tablet) 1 mg PO BID [facility] Last Admin: 04/13/22 21:00 Dose: 1 mg Chlorpromazine HCl (Chlorpromazine Hcl 100 Mg Tablet) 100 mg PO BID [facility] Last Admin: 04/13/22 21:01 Dose: 100 mg Clonidine HCl (Clonidine Hcl 0.2 Mg Tablet) 0.2 mg PO TID [facility]; Protocol Last Admin: 04/13/22 21:00 Dose: 0.2 mg Hydrocortisone (Hydrocortisone 1 % Cream 28.35 Gm Tube) 1 appl TOPICAL BID [facility]; Protocol Last Admin: 04/13/22 22:13 Dose: Not Given Hydroxyzine HCl (Hydroxyzine Hcl 25 Mg Tablet) 25 mg PO Q6H PRN PRN Reason: Anxiety Last Admin: 04/12/22 21:03 Dose: 25 mg Levothyroxine Sodium (Levothyroxine Sodium 25 Mcg Tablet) 25 mcg PO DAILY@0600 [facility] Last Admin: 04/13/22 05:51 Dose: 25 mcg Magnesium Hydroxide (Milk Of Magnesia 30 Ml Oral.Susp) 30 ml PO DAILY PRN PRN Reason: Constipation Trazodone HCl (Trazodone Hcl 50 Mg Tablet) 50 mg PO BEDTIME PRN PRN Reason: Insomnia Last Admin: 04/12/22 21:03 Dose: 50 mg Allergies Allergies Allergy/AdvReac Type Severity Reaction Status Date / Time No Known Allergies Allergy Verified 04/10/22 12:57 Assessment & Plan Assessment & Plan (1) Schizoaffective disorder, depressive type: Status: Acute Code(s): F25.1 - Schizoaffective disorder, depressive type Plan Toribio is a 36 y.o. Male who carries a dx of schizoaffective DO, depressive type. He presented to [facility] crisis on 04/10/22 after his provider from his PACT program called requesting an assessment due to pt presenting as paranoid, psychotic, not taking his medication, and hearing voices telling him to cut off his fingers and other limbs. Pt has been non-adherent with risperdal for 4-5 months. No Familia?s Order. Historically, pt is higher functioning on antipsychotic medication, i.e. good with paying rent and child support, but recently he has not paid his rent.? Plan: Pt reports hx of adverse effects on antipsychotic medication. Says he has been on cogentin and he believes this helps with sleep. Willing to restart thorazine 100 mg QHS.? Q15 min safety checks, CV Monitor response to medications. Monitor for safety in the milieu. Discharge on stabilization. Patient seen. Chart reviewed. Discussed with team. Obtain collateral contact info?as needed 04/12 continue current tx. per Alta Kaba from [facility] pt with hx of TD with risperi done, used to be on ingrezza. 04/13 continue tx plan I spent minutes with the patient and/or on the patient floor today, greater than?50% of which was spent counseling/coordinating care. Reason for contiued inpatient stay Substantial Risk for: inability to function
[2022-04-13 21:00] VITALS: BP 144/89; PULSE 104; RESP 16; TEMP 36.6; O2SAT 99
[2022-04-14] MEDS: Levothyroxine Sodium 25 MCG TABLET PO (08:09)
[2022-04-14] MEDS: Benztropine Mesylate 1 MG TABLET PO ×2 (08:10→21:45)
[2022-04-14] MEDS: chlorproMAZINE HCl 100 MG TABLET PO ×2 (08:10→21:46)
[2022-04-14] MEDS: cloNIDine HCL 0.2 MG TABLET PO ×2 (08:10→21:46)
[2022-04-14] MEDS: Hydrocortisone 1 % Cream 28.35 GM TUBE 1 APPL TOPICAL (08:10)
[2022-04-14 08:14] VITALS: BP 137/88; PULSE 79; RESP 16; TEMP 36.6; O2SAT 99
[2022-04-14] MEDS: LORazepam 1 MG TABLET 2 MG PO (11:44)
--- NOTE | 2022-04-14 15:36 | P.PNPSI_ITS ---
Subjective Subjective Date of Service: 04/14/22 Reason For Visit: schizoaffective DO Interim History: pt somewhat agitated this morning, saying he just feels uncomfortable and unsafe here and wants to discharge. somewhat in a panic, having a difficult time explaining himself. MD suggests he take more thorazine and ativan, pt says he doesn't want more medication, he just wants to discharge. MD informs pt he will not be discharged today, but that we can try to arrange for discharge tomorrow. he is frustrated, asking if there is anyone else he can talk to. he is referred to speak with the clinical transformation manager. per staff, visible, safe over weekend. c/o AVH. good sleep, good appetite. wants medications BID only. denies SI/HI. asking to have thorazine 100 mg doses administered as 2x40 mg tabs due to size of pills. per staff, pt took ativan 2 mg as offered late morning but declined thorazine. Mental Status Exam Mental Status Exam Narrative: A&O. walking the [place], in hospital attire, overweight. good eye contact, attentive. No Tics or Tremors. No abnormal involuntary movements. agitated. speech spontaneous with incr rate, incr loudness, incr amount, and nml prosody. No prolonged speech latency or dysarthria. affect is constricted, hyper-intense, mod-labile. Endorses command AH telling him to self harm, RIS in front of MD. Thoughts are distracted. No known cognitive or memory impairment. Insight/ Judgment severely impaired. Diagnostics Vital Signs (24Hr): Vital Signs - 24 hr 04/13/22 21:00 04/14/22 08:14 Temperature 97.8 F 97.8 F Pulse Rate 104 H 79 Respiratory Rate 16 16 Blood Pressure 144/89 H 137/88 Pulse Oximetry 99 99 Oxygen Delivery Method Room Air Room Air BMI result Body Mass Index 36.7 Labs Results: 04/10/22 13:19 04/11/22 07:16 Medications Medications Current Medications Acetaminophen (Acetaminophen 325 Mg Tablet) 975 mg PO Q6H PRN PRN Reason: mild pain Al Hydroxide/Mg Hydroxide (Magnesium Hydrox/Alum Hydrox 30 Ml Oral.Susp) 30 ml PO Q6H PRN PRN Reason: Heartburn/Nausea Benzocaine (Throat Lozenge, Medicated Lozenge) 1 lozenge MUCOUS MEM Q2H PRN PRN Reason: Sore Throat or dry throat Benztropine Mesylate (Benztropine Mesylate 1 Mg Tablet) 1 mg PO BID [facility] Last Admin: 04/14/22 08:10 Dose: 1 mg Chlorpromazine HCl (Chlorpromazine Hcl 100 Mg Tablet) 100 mg PO BID [facility] Last Admin: 04/14/22 08:10 Dose: 100 mg Clonidine HCl (Clonidine Hcl 0.2 Mg Tablet) 0.2 mg PO BID [facility]; Protocol Hydrocortisone (Hydrocortisone 1 % Cream 28.35 Gm Tube) 1 appl TOPICAL BID [facility]; Protocol Last Admin: 04/14/22 08:10 Dose: 1 appl Hydroxyzine HCl (Hydroxyzine Hcl 25 Mg Tablet) 25 mg PO Q6H PRN PRN Reason: Anxiety Last Admin: 04/12/22 21:03 Dose: 25 mg Levothyroxine Sodium (Levothyroxine Sodium 25 Mcg Tablet) 25 mcg PO DAILY@0600 [facility] Last Admin: 04/14/22 08:09 Dose: 25 mcg Magnesium Hydroxide (Milk Of Magnesia 30 Ml Oral.Susp) 30 ml PO DAILY PRN PRN Reason: Constipation Trazodone HCl (Trazodone Hcl 50 Mg Tablet) 50 mg PO BEDTIME PRN PRN Reason: Insomnia Last Admin: 04/12/22 21:03 Dose: 50 mg Allergies Allergies Allergy/AdvReac Type Severity Reaction Status Date / Time No Known Allergies Allergy Verified 04/10/22 12:57 Assessment & Plan Assessment & Plan (1) Schizoaffective disorder, depressive type: Status: Acute Code(s): F25.1 - Schizoaffective disorder, depressive type Plan Toribio is a 36 y.o. Male who carries a dx of schizoaffective DO, depressive type. He presented to [facility] crisis on 04/10/22 after his provider from his PACT program called requesting an assessment due to pt presenting as paranoid, psychotic, not taking his medication, and hearing voices telling him to cut off his fingers and other limbs. Pt has been non-adherent with risperdal for 4-5 months. No Familia?s Order. Historically, pt is higher functioning on antipsychotic medication, i.e. good with paying rent and child support, but recently he has not paid his rent.? Plan: Pt reports hx of adverse effects on antipsychotic medication. Says he has been on cogentin and he believes this helps with sleep. Willing to restart thorazine 100 mg QHS.? Q15 min safety checks, CV Monitor response to medications. Monitor for safety in the milieu. Discharge on stabilization. Patient seen. Chart reviewed. Discussed with team. Obtain collateral contact info?as needed 04/12: continue current tx. per Alta Kaba from [facility] pt with hx of TD with risperidone, used to be on ingrezza. 04/13: continue tx plan 04/14: pt got ativan 2 mg for agitation in the morning, declined PRN thorazine. no other changes made to regimen. due to lability/instability in mood, pt may best be served with the addition of a mood stabilizer such as lithium. will attempt to discuss with pt tomorrow if he is more settled. I spent ___35___ minutes with the patient and/or on the patient floor today, greater than?50% of which was spent counseling/coordinating care. Reason for contiued inpatient stay Substantial Risk for: harm to self, harm to others, inability to function and rapid decompensation
[2022-04-14 21:40] VITALS: BP 147/101; PULSE 85; RESP 18; TEMP 36.6; O2SAT 99
[2022-04-15 08:45] VITALS: BP 141/92; PULSE 94; RESP 16; TEMP 36.4; O2SAT 100
[2022-04-15] MEDS: chlorproMAZINE HCl 100 MG TABLET PO (08:49)
[2022-04-15] MEDS: Levothyroxine Sodium 25 MCG TABLET PO (08:49)
[2022-04-15] MEDS: Benztropine Mesylate 1 MG TABLET PO (08:49)
[2022-04-15] MEDS: cloNIDine HCL 0.2 MG TABLET PO ×2 (08:49→21:56)
[2022-04-15] MEDS: Hydrocortisone 1 % Cream 28.35 GM TUBE 1 APPL TOPICAL (08:51)
--- NOTE | 2022-04-15 15:02 | P.PNPSI_ITS ---
Subjective Subjective Date of Service: 04/15/22 Reason For Visit: schizoaffective DO Interim History: brief interview, pt asks repeatedly what we will discuss. MD says check in, see how he is doing, see what we can do to help him today. pt says if we aren't going to be talking about discharge planning he can't stay. he then unilaterally ends the interview by leaving the room. per staff, refused to meet with staff, saying, i'm already talking to someone in my head. pacing, RIS in [place]. got ativan 2 mg at 1144, which was helpful to calm him. overheard to have said you owe me money, that's why i'm going to shoot you. Mental Status Exam Mental Status Exam Narrative: A&O. walking the [place], in hospital attire, overweight. good eye contact, attentive. No Tics or Tremors. No abnormal involuntary movements. mildly agitated. speech spontaneous with incr rate, nml loudness, nml amount, and nml prosody. No prolonged speech latency or dysarthria. affect is constricted, hyp er-intense, min-labile. not able to assess further. Thoughts are distracted. No known cognitive or memory impairment. Insight/ Judgment severely impaired. Diagnostics Vital Signs (24Hr): Vital Signs - 24 hr 04/14/22 21:40 04/15/22 08:45 Temperature 97.8 F 97.6 F Pulse Rate 85 94 Respiratory Rate 18 16 Blood Pressure 147/101 H 141/92 H Pulse Oximetry 99 100 Oxygen Delivery Method Room Air Room Air BMI result Body Mass Index 36.7 Labs Results: 04/10/22 13:19 04/11/22 07:16 Medications Medications Current Medications Acetaminophen (Acetaminophen 325 Mg Tablet) 975 mg PO Q6H PRN PRN Reason: mild pain Al Hydroxide/Mg Hydroxide (Magnesium Hydrox/Alum Hydrox 30 Ml Oral.Susp) 30 ml PO Q6H PRN PRN Reason: Heartburn/Nausea Benzocaine (Throat Lozenge, Medicated Lozenge) 1 lozenge MUCOUS MEM Q2H PRN PRN Reason: Sore Throat or dry throat Benztropine Mesylate (Benztropine Mesylate 1 Mg Tablet) 1 mg PO BID [facility] Last Admin: 04/15/22 08:49 Dose: 1 mg Chlorpromazine HCl (Chlorpromazine Hcl 100 Mg Tablet) 100 mg PO DAILY [facility] Chlorpromazine HCl (Chlorpromazine Hcl 100 Mg Tablet) 200 mg PO BEDTIME [facility] Clonidine HCl (Clonidine Hcl 0.2 Mg Tablet) 0.2 mg PO BID [facility]; Protocol Last Admin: 04/15/22 08:49 Dose: 0.2 mg Hydrocortisone (Hydrocortisone 1 % Cream 28.35 Gm Tube) 1 appl TOPICAL BID [facility]; Protocol Last Admin: 04/15/22 08:51 Dose: 1 appl Hydroxyzine HCl (Hydroxyzine Hcl 25 Mg Tablet) 25 mg PO Q6H PRN PRN Reason: Anxiety Last Admin: 04/12/22 21:03 Dose: 25 mg Levothyroxine Sodium (Levothyroxine Sodium 25 Mcg Tablet) 25 mcg PO DAILY@0600 [facility] Last Admin: 04/15/22 08:49 Dose: 25 mcg Lorazepam (Lorazepam 1 Mg Tablet) 2 mg PO Q4H PRN PRN Reason: agitation Magnesium Hydroxide (Milk Of Magnesia 30 Ml Oral.Susp) 30 ml PO DAILY PRN PRN Reason: Constipation Trazodone HCl (Trazodone Hcl 50 Mg Tablet) 50 mg PO BEDTIME PRN PRN Reason: Insomnia Last Admin: 04/12/22 21:03 Dose: 50 mg Allergies Allergies Allergy/AdvReac Type Severity Reaction Status Date / Time No Known Allergies Allergy Verified 04/10/22 12:57 Assessment & Plan Assessment & Plan (1) Schizoaffective disorder, depressive type: Status: Acute Code(s): F25.1 - Schizoaffective disorder, depressive type Plan Toribio is a 36 y.o. Male who carries a dx of schizoaffective DO, depressive type. He presented to [facility] crisis on 04/10/22 after his provider from his PACT program called requesting an assessment due to pt presenting as paranoid, psychotic, not taking his medication, and hearing voices telling him to cut off his fingers and other limbs. Pt has been non-adherent with risperdal for 4-5 months. No Familia?s Order. Historically, pt is higher functioning on antipsychotic medication, i.e. good with paying rent and child support, but recently he has not paid his rent.? Plan: Pt reports hx of adverse effects on antipsychotic medication. Says he has been on cogentin and he believes this helps with sleep. Willing to restart tho razine 100 mg QHS.? Q15 min safety checks, CV Monitor response to medications. Monitor for safety in the milieu. Discharge on stabilization. Patient seen. Chart reviewed. Discussed with team. Obtain collateral contact info?as needed 04/12: continue current tx. per Alta Kaba from [facility] pt with hx of TD with risperidone, used to be on ingrezza. 04/13: continue tx plan 04/14: pt got ativan 2 mg for agitation in the morning, declined PRN thorazine. no other changes made to regimen. due to lability/instability in mood, pt may best be served with the addition of a mood stabilizer such as lithium. will attempt to discuss with pt tomorrow if he is more settled. 04/15: unable to have conversation with pt. increase HS thorazine to 200 mg. ativan 2 mg PRN added. I spent ___20___ minutes with the patient and/or on the patient floor today, greater than?50% of which was spent counseling/coordinating care. Reason for contiued inpatient stay Substantial Risk for: harm to others, inability to function and rapid decompensation
[2022-04-15] MEDS: chlorproMAZINE HCl 100 MG TABLET 200 MG PO (21:43)
[2022-04-15] MEDS: LORazepam 1 MG TABLET 2 MG PO (21:44)
[2022-04-15 21:56] VITALS: BP 168/97; PULSE 91; RESP 18; TEMP 36.8; O2SAT 97
[2022-04-16] MEDS: Levothyroxine Sodium 25 MCG TABLET PO (06:31)
[2022-04-16 08:14] VITALS: BP 176/109; PULSE 94; RESP 16; TEMP 36.6; O2SAT 99
[2022-04-16] MEDS: chlorproMAZINE HCl 100 MG TABLET PO ×2 (08:21→20:25)
[2022-04-16] MEDS: cloNIDine HCL 0.2 MG TABLET PO ×2 (08:22→20:25)
[2022-04-16] MEDS: Benztropine Mesylate 1 MG TABLET PO (08:22)
[2022-04-16] MEDS: Hydrocortisone 1 % Cream 28.35 GM TUBE 1 APPL TOPICAL (09:35)
--- NOTE | 2022-04-16 14:01 | P.PNPSI_ITS ---
Subjective Subjective Date of Service: 04/16/22 Reason For Visit: schizoaffective DO Interim History: pt more calm and cooperative today. asking about discharge, educated re 3-day notice and provided richard warning. pt signed three-day after interview. pt refuses to increase his dosing of thorazine. reviews Dx of schizoaffective disorder and wonders if mood stabilizer might be helpful. review 3 mood stabilizers, pt agrees to lithium trial. reviews the types of AH he is hearing in detail; mostly incoherent but vaguely menacing. denies HI. per staff, pt presented as pleasant yesterday. increased anxiety and depression. hearing voices the past 2 days, says of the voices today, however, that they are a little more silent, don't bother me as much. RIS in hallway. slept well overnight. refused higher dosing of thorazine at HS as well as ativan, cogentin, and hydrocortisone. wants meds decreased, not increased. agitated, pacing when TV was turned off at HS. security was called to the unit but pt went to his room and went to sleep without further incident. Mental Status Exam Mental Status Exam Narrative: A&O. walking the [place], in hospital attire, overweight. good eye contact, attentive. No Tics or Tremors. No abnormal involuntary movements. mildly agitated. speech spontaneous with incr rate, nml loudness, nml amount, and nml prosody. No prolonged speech latency or dysarthria. affect is constricted, hyper-intense, non-labile. denies HI. Thoughts are distracted. No known cognitive or memory impairment. Insight/ Judgment severely impaired. Diagnostics Vital Signs (24Hr): Vital Signs - 24 hr 04/15/22 21:56 04/16/22 08:14 Temperature 98.3 F 97.8 F Pulse Rate 91 94 Respiratory Rate 18 16 Blood Pressure 168/97 H 176/109 H Pulse Oximetry 97 99 Oxygen Delivery Method Room Air Room Air BMI result Body Mass Index 36.7 Labs Results: 04/10/22 13:19 04/11/22 07:16 Medications Medications Current Medications Acetaminophen (Acetaminophen 325 Mg Tablet) 975 mg PO Q6H PRN PRN Reason: mild pain Al Hydroxide/Mg Hydroxide (Magnesium Hydrox/Alum Hydrox 30 Ml Oral.Susp) 30 ml PO Q6H PRN PRN Reason: Heartburn/Nausea Benzocaine (Throat Lozenge, Medicated Lozenge) 1 lozenge MUCOUS MEM Q2H PRN PRN Reason: Sore Throat or dry throat Benztropine Mesylate (Benztropine Mesylate 1 Mg Tablet) 1 mg PO BID [facility] Last Admin: 04/16/22 08:22 Dose: 1 mg Chlorpromazine HCl (Chlorpromazine Hcl 100 Mg Tablet) 100 mg PO DAILY [facility] Last Admin: 04/16/22 08:21 Dose: 100 mg Chlorpromazine HCl (Chlorpromazine Hcl 100 Mg Tablet) 100 mg PO BEDTIME [facility] Clonidine HCl (Clonidine Hcl 0.2 Mg Tablet) 0.2 mg PO BID [facility]; Protocol Last Admin: 04/16/22 08:22 Dose: 0.2 mg Hydrocortisone (Hydrocortisone 1 % Cream 28.35 Gm Tube) 1 appl TOPICAL BID [facility]; Protocol Last Admin: 04/16/22 09:35 Dose: 1 appl Hydroxyzine HCl (Hydroxyzine Hcl 25 Mg Tablet) 25 mg PO Q6H PRN PRN Reason: Anxiety Last Admin: 04/12/22 21:03 Dose: 25 mg Levothyroxine Sodium (Levothyroxine Sodium 25 Mcg Tablet) 25 mcg PO DAILY@0600 [facility] Last Admin: 04/16/22 06:31 Dose: 25 mcg [place] Carbonate ([place] Carbonate Er 300 Mg Tablet.Er) 600 mg PO BID [facility] Last Admin: 04/16/22 12:35 Dose: Not Given Lorazepam (Lorazepam 1 Mg Tablet) 2 mg PO Q4H PRN PRN Reason: agitation Last Admin: 04/15/22 21:44 Dose: 1 mg Magnesium Hydroxide (Milk Of Magnesia 30 Ml Oral.Susp) 30 ml PO DAILY PRN PRN Reason: Constipation Trazodone HCl (Trazodone Hcl 50 Mg Tablet) 50 mg PO BEDTIME PRN PRN Reason: Insomnia Last Admin: 04/12/22 21:03 Dose: 50 mg Allergies Allergies Allergy/AdvReac Type Severity Reaction Status Date / Time No Known Allergies Allergy Verified 04/10/22 12:57 Assessment & Plan Assessment & Plan (1) Schizoaffective disorder, depressive type: Status: Acute Code(s): F25.1 - Schizoaffective disorder, depressive type Plan Toribio is a 36 y.o. Male who carries a dx of schizoaffective DO, depressive type. He presented to [facility] crisis on 04/10/22 after his provider from his PACT program called requesting an assessment due to pt presenting as paranoid, psychotic, not taking his medication, and hearing voices telling him to cut off his fingers and other limbs. Pt has been non-adherent with risperdal for 4-5 months. No Familia?s Order. Historically, pt is higher functioning on antipsychotic med ication, i.e. good with paying rent and child support, but recently he has not paid his rent.? Plan: Pt reports hx of adverse effects on antipsychotic medication. Says he has been on cogentin and he believes this helps with sleep. Willing to restart thorazine 100 mg QHS.? Q15 min safety checks, CV Monitor response to medications. Monitor for safety in the milieu. Discharge on stabilization. Patient seen. Chart reviewed. Discussed with team. Obtain collateral contact info?as needed 04/12: continue current tx. per Alta Kaba from [facility] pt with hx of TD with risperidone, used to be on ingrezza. 04/13: continue tx plan 04/14: pt got ativan 2 mg for agitation in the morning, declined PRN thorazine. no other changes made to regimen. due to lability/instability in mood, pt may best be served with the addition of a mood stabilizer such as lithium. will attempt to discuss with pt tomorrow if he is more settled. 04/15: unable to have conversation with pt. increase HS thorazine to 200 mg. ativan 2 mg PRN added. 04/16: pt refusing to take more than 100 mg thorazine at HS, so dosing reduced back to 100. at HS declined ativan, cogentin, hydrocortisone. DC cogentin as likely unnecessary and ativan as not indicated for long-term use today. lithium 600 BID was added. I spent ___35___ minutes with the patient and/or on the patient floor today, greater than?50% of which was spent counseling/coordinating care. Reason for contiued inpatient stay Substantial Risk for: inability to function and rapid decompensation
[2022-04-16 20:21] VITALS: BP 166/102; PULSE 90; RESP 18; TEMP 36.6; O2SAT 100
[2022-04-16] MEDS: Lithium Carbonate ER 300 MG TABLET.ER 600 MG PO (20:25)
[2022-04-17 06:00] VITALS: BP 169/100; PULSE 84; RESP 18; TEMP 36.6; O2SAT 98
[2022-04-17 07:00] VITALS: BMI 39.3
[2022-04-17] MEDS: Lithium Carbonate ER 300 MG TABLET.ER 600 MG PO (09:01)
[2022-04-17] MEDS: cloNIDine HCL 0.2 MG TABLET PO (09:01)
[2022-04-17] MEDS: Levothyroxine Sodium 25 MCG TABLET PO (09:01)
[2022-04-17] MEDS: chlorproMAZINE HCl 100 MG TABLET PO (09:02)
--- NOTE | 2022-04-17 15:09 | HO.PSYCHPN ---
Subjective Subjective Date of Service: 04/17/22 Reason For Visit: schizoaffective DO Interim History: met with pt, his sister, and ESPERANZA jones. pt gave his consent to discuss his medical info with his sister. she asked many questions about his treatment, all of which were answered. legal circumstances were also clarified. ESPERANZA informed pt and sister that pt would very likely be discharged thursday as long as he is not deemed dangerous at that point. ESPERANZA jones informed the pair that pt's outpatient team would be meeting with him either tomorrow or thursday prior to discharge. per staff, 3-day matures 04/21. not attending groups. c/o AH of fake shares in the [employer]. lots of RIS. mod anx, poor sleep. seems to get agitated around [place] and asks to leave. awake most of the night last night. Mental Status Exam Mental Status Exam Narrative: A&O. walking the [place], in hospital attire, overweight. good eye contact, attentive. No Tics or Tremors. No abnormal involuntary movements. mildly agitated. speech spontaneous with incr rate, nml loudness, nml amount, and nml prosody. No prolonged speech latency or dysarthria. affect is constricted, hyper-intense, min-labile. no SI/HI/AVH expressed. Thoughts are distracted. No known cognitive or memory impairment. Insight/ Judgment severely impaired. Diagnostics Vital Signs (24Hr): Vital Signs - 24 hr 04/16/22 20:21 04/17/22 06:00 Temperature 97.8 F 97.8 F Pulse Rate 90 84 Respiratory Rate 18 18 Blood Pressure 166/102 H 169/100 H Pulse Oximetry 100 98 Oxygen Delivery Method Room Air Room Air BMI result Body Mass Index 39.3 Labs Results: 04/10/22 13:19 04/11/22 07:16 Medications Medications Current Medications Acetaminophen (Acetaminophen 325 Mg Tablet) 975 mg PO Q6H PRN PRN Reason: mild pain Al Hydroxide/Mg Hydroxide (Magnesium Hydrox/Alum Hydrox 30 Ml Oral.Susp) 30 ml PO Q6H PRN PRN Reason: Heartburn/Nausea Benzocaine (Throat Lozenge, Medicated Lozenge) 1 lozenge MUCOUS MEM Q2H PRN PRN Reason: Sore Throat or dry throat Chlorpromazine HCl (Chlorpromazine Hcl 100 Mg Tablet) 100 mg PO DAILY [facility] Last Admin: 04/17/22 09:02 Dose: 100 mg Chlorpromazine HCl (Chlorpromazine Hcl 100 Mg Tablet) 100 mg PO BEDTIME [facility] Last Admin: 04/16/22 20:25 Dose: 100 mg Clonidine HCl (Clonidine Hcl 0.2 Mg Tablet) 0.2 mg PO BID [facility]; Protocol Last Admin: 04/17/22 09:01 Dose: 0.2 mg Hydrocortisone (Hydrocortisone 1 % Cream 28.35 Gm Tube) 1 appl TOPICAL BID [facility]; Protocol Last Admin: 04/17/22 09:02 Dose: Not Given Hydroxyzine HCl (Hydroxyzine Hcl 25 Mg Tablet) 25 mg PO Q6H PRN PRN Reason: Anxiety Last Admin: 04/12/22 21:03 Dose: 25 mg Levothyroxine Sodium (Levothyroxine Sodium 25 Mcg Tablet) 25 mcg PO DAILY@0600 [facility] Last Admin: 04/17/22 09:01 Dose: 25 mcg [place] Carbonate ([place] Carbonate Er 300 Mg Tablet.Er) 600 mg PO BID [facility] Last Admin: 04/17/22 09:01 Dose: 600 mg Lorazepam (Lorazepam 1 Mg Tablet) 2 mg PO Q4H PRN PRN Reason: agitation Last Admin: 04/15/22 21:44 Dose: 1 mg Magnesium Hydroxide (Milk Of Magnesia 30 Ml Oral.Susp) 30 ml PO DAILY PRN PRN Reason: Constipation Trazodone HCl (Trazodone Hcl 50 Mg Tablet) 50 mg PO BEDTIME PRN PRN Reason: Insomnia Last Admin: 04/12/22 21:03 Dose: 50 mg Allergies Allergies Allergy/AdvReac Type Severity Reaction Status Date / Time No Known Allergies Allergy Verified 04/10/22 12:57 Assessment & Plan Assessment & Plan (1) Schizoaffective disorder, depressive type: Status: Acute Code(s): F25.1 - Schizoaffective disorder, depressive type Plan Toribio is a 36 y.o. Male who carries a dx of schizoaffective DO, depressive type. He presented to [facility] on 04/10/22 after his provider from his PACT program called requesting an assessment due to pt presenting as paranoid, psychotic, not taking his medication, and hearing voices telling him to cut off his fingers and other limbs. Pt has been non-adherent with risperdal for 4-5 months. No Familia?s Order. Historically, pt is higher functioning on antipsychotic medication, i.e. good with paying rent and child support, but recently he has not paid his rent.? Plan: Pt reports hx of adverse effects on antipsychotic medication. Says he has been on cogentin and he believes this helps with sleep. Willing to restart thorazine 100 mg QHS.? Q15 min safety checks, CV Monitor response to medications. Monitor for safety in the milieu. Discharge on stabilization. Patient seen. Chart reviewed. Discussed with team. Obtain collateral contact info?as needed 04/12: continue current tx. per Alta Kaba from [facility] pt with hx of TD with risperidone, used to be on ingrezza. 04/13: continue tx plan 04/14: pt got ativan 2 mg for agitation in the morning, declined PRN thorazine. no other changes made to regimen. due to lability/instability in mood, pt may best be served with the addition of a mood stabilizer such as lithium. will attempt to discuss with pt tomorrow if he is more settled. 04/15: unable to have conversation with pt. increase HS thorazine to 200 mg. ativan 2 mg PRN added. 04/16: pt refusing to take more than 100 mg thorazine at HS, so dosing reduced back to 100. at HS declined ativan, cogentin, hydrocortisone. DC cogentin as likely unnecessary and ativan as not indicated for long-term use today. lithium 600 BID was added. 04/17: met with pt, sis, and SW for extended period. no change in presentation, no change in mgmt. I spent ___45___ minutes with the patient and/or on the patient floor today, greater than?50% of which was spent counseling/coordinating care. Reason for contiued inpatient stay Substantial Risk for: inability to function and rapid decompensation
[2022-04-17 21:26] VITALS: BP 142/99; PULSE 88; RESP 18; TEMP 36.4; O2SAT 96
[2022-04-17] MEDS: Hydrocortisone 1 % Cream 28.35 GM TUBE 1 APPL TOPICAL (22:42)
[2022-04-18 10:12] VITALS: BP 171/106; PULSE 95; RESP 18; TEMP 36.1; O2SAT 96
[2022-04-18] MEDS: cloNIDine HCL 0.2 MG TABLET PO ×2 (10:13→21:40)
[2022-04-18] MEDS: Lithium Carbonate ER 300 MG TABLET.ER 600 MG PO ×2 (10:14→21:40)
[2022-04-18] MEDS: Levothyroxine Sodium 25 MCG TABLET PO (10:14)
[2022-04-18] MEDS: chlorproMAZINE HCl 100 MG TABLET PO ×2 (10:16→21:40)
[2022-04-18 12:27] VITALS: BP 160/110; PULSE 96; RESP 16
--- NOTE | 2022-04-18 15:40 | P.PNPSI_ITS ---
Subjective Subjective Date of Service: 04/18/22 Reason For Visit: schizoaffective DO Interim History: pt had mtg with PACT team, rescinded his 3-day notice afterward. he reported that they want him to stay until late next week, which is what he plans to do. concerned about being on too much lithium, feels it is a heavy medication. he has felt heavier in the chest area. in the nipples area. MD encourages patience and states it may take him several days to become accustomed to the medication. he agrees to give it a try. reports he slept better last night, for about 5.5 hours, whereas usually he sleeps 2-3 hours. per staff, RIS, delusional yesterday. refused HS meds last night. slept [place] to 0530. Mental Status Exam Mental Status Exam Narrative: A&O. walking the [place], in street clothes, overweight. good eye contact, attentive. No Tics or Tremors. No abnormal involuntary movements. speech spontaneous with incr rate, nml loudness, nml amount, and nml prosody. No pro longed speech latency or dysarthria. affect is constricted, normo-intense, non- labile. no SI/HI/AVH expressed. Thoughts are more linear and goal-oriented. No known cognitive or memory impairment. Insight/ Judgment severely impaired. Diagnostics Vital Signs (24Hr): Vital Signs - 24 hr 04/17/22 21:26 04/18/22 10:12 04/18/22 12:27 Temperature 97.6 F 97.0 F Pulse Rate 88 95 96 Respiratory Rate 18 18 16 Blood Pressure 142/99 H 171/106 H 160/110 H Pulse Oximetry 96 96 Oxygen Delivery Method Room Air Room Air BMI result Body Mass Index 39.3 Labs Results: 04/10/22 13:19 04/11/22 07:16 Medications Medications Current Medications Acetaminophen (Acetaminophen 325 Mg Tablet) 975 mg PO Q6H PRN PRN Reason: mild pain Al Hydroxide/Mg Hydroxide (Magnesium Hydrox/Alum Hydrox 30 Ml Oral.Susp) 30 ml PO Q6H PRN PRN Reason: Heartburn/Nausea Benzocaine (Throat Lozenge, Medicated Lozenge) 1 lozenge MUCOUS MEM Q2H PRN PRN Reason: Sore Throat or dry throat Chlorpromazine HCl (Chlorpromazine Hcl 100 Mg Tablet) 100 mg PO DAILY [facility] Last Admin: 04/18/22 10:16 Dose: 100 mg Chlorpromazine HCl (Chlorpromazine Hcl 100 Mg Tablet) 100 mg PO BEDTIME [facility] Last Admin: 04/17/22 22:44 Dose: Not Given Clonidine HCl (Clonidine Hcl 0.2 Mg Tablet) 0.2 mg PO BID [facility]; Protocol Last Admin: 04/18/22 10:13 Dose: 0.2 mg Hydrocortisone (Hydrocortisone 1 % Cream 28.35 Gm Tube) 1 appl TOPICAL BID [facility]; Protocol Last Admin: 04/18/22 10:14 Dose: Not Given Hydroxyzine HCl (Hydroxyzine Hcl 25 Mg Tablet) 25 mg PO Q6H PRN PRN Reason: Anxiety Last Admin: 04/12/22 21:03 Dose: 25 mg Levothyroxine Sodium (Levothyroxine Sodium 25 Mcg Tablet) 25 mcg PO DAILY@0600 [facility] Last Admin: 04/18/22 10:14 Dose: 25 mcg [place] Carbonate ([place] Carbonate Er 300 Mg Tablet.Er) 600 mg PO BID [facility] Last Admin: 04/18/22 10:14 Dose: 600 mg Lorazepam (Lorazepam 1 Mg Tablet) 2 mg PO Q4H PRN PRN Reason: agitation Last Admin: 04/15/22 21:44 Dose: 1 mg Magnesium Hydroxide (Milk Of Magnesia 30 Ml Oral.Susp) 30 ml PO DAILY PRN PRN Reason: Constipation Trazodone HCl (Trazodone Hcl 50 Mg Tablet) 50 mg PO BEDTIME PRN PRN Reason: Insomnia Last Admin: 04/12/22 21:03 Dose: 50 mg Allergies Allergies Allergy/AdvReac Type Severity Reaction Status Date / Time No Known Allergies Allergy Verified 04/10/22 12:57 Assessment & Plan Assessment & Plan (1) Schizoaffective disorder, depressive type: Status: Acute Code(s): F25.1 - Schizoaffective disorder, depressive type Plan Toribio is a 36 y.o. Male who carries a dx of schizoaffective DO, depressive type. He presented to [facility] crisis on 04/10/22 after his provider from his PACT program called requesting an assessment due to pt presenting as paranoid, psychotic, not taking his medication, and hearing voices telling him to cut off his fingers and other limbs. Pt has been non-adherent with risperdal for 4-5 months. No Familia?s Order. Historically, pt is higher functioning on antipsychotic me dication, i.e. good with paying rent and child support, but recently he has not paid his rent.? Plan: Pt reports hx of adverse effects on antipsychotic medication. Says he has been on cogentin and he believes this helps with sleep. Willing to restart thorazine 100 mg QHS.? Q15 min safety checks, CV Monitor response to medications. Monitor for safety in the milieu. Discharge on stabilization. Patient seen. Chart reviewed. Discussed with team. Obtain collateral contact info?as needed 04/12: continue current tx. per Alta Kaba from [facility] pt with hx of TD with risperidone, used to be on ingrezza. 04/13: continue tx plan 04/14: pt got ativan 2 mg for agitation in the morning, declined PRN thorazine. no other changes made to regimen. due to lability/instability in mood, pt may best be served with the addition of a mood stabilizer such as lithium. will attempt to discuss with pt tomorrow if he is more settled. 04/15: unable to have conversation with pt. increase HS thorazine to 200 mg. ativan 2 mg PRN added. 04/16: pt refusing to take more than 100 mg thorazine at HS, so dosing reduced back to 100. at HS declined ativan, cogentin, hydrocortisone. DC cogentin as likely unnecessary and ativan as not indicated for long-term use today. lithium 600 BID was added. 04/17: met with pt, sis, and SW for extended period. no change in presentation, no change in mgmt. 04/18: mtg with PACT team held, pt rescinded his 3-day notice. slept 5.5 hours last night, up from his usual 2 or 3. refused meds last night. continue current regimen, encourage compliance. I spent ___25___ minutes with the patient and/or on the patient floor today, greater than?50% of which was spent counseling/coordinating care. Reason for contiued inpatient stay Substantial Risk for: inability to function and rapid decompensation
[2022-04-18 21:30] VITALS: BP 141/91; PULSE 75; RESP 18; TEMP 36.6; O2SAT 99
[2022-04-18] MEDS: Hydrocortisone 1 % Cream 28.35 GM TUBE 1 APPL TOPICAL (21:43)
[2022-04-19 08:27] VITALS: BP 142/79; PULSE 80; RESP 18; TEMP 36.5; O2SAT 95
[2022-04-19] MEDS: Levothyroxine Sodium 25 MCG TABLET PO (08:49)
[2022-04-19] MEDS: cloNIDine HCL 0.2 MG TABLET PO ×2 (08:49→21:52)
[2022-04-19] MEDS: chlorproMAZINE HCl 100 MG TABLET PO ×2 (08:50→21:52)
[2022-04-19] MEDS: Lithium Carbonate ER 300 MG TABLET.ER 600 MG PO ×2 (08:50→21:52)
--- NOTE | 2022-04-19 17:12 | HO.PSYCHPN ---
Subjective Subjective Date of Service: 04/19/22 Reason For Visit: schizoaffective DO Interim History: overall reports things are going well today. Was feeling tired due to poor sleep last night in context of roommate. Does however feel that mood is getting better and auditory hallucinations are much much less. Energy and appetite good. Feels positive around current treatment plan. No SI or HI. Feels safe on the unit and well supported. Medication Compliance: Yes Side effects from medications: No Attending Groups: Intermittent Review of Systems Acute medical concerns: No BP has been elevated, utilizing clonidine. Review of Systems Review of Systems Unremarkable Mental Status Exam Mental Status Exam Narrative: Pleasant. Engaged. Largely organized and linear thoughts. Affect restricted and does endorse some depression. No SI. No HI. Decreased auditory hallucinations. Non command. no paranoia. Insight and judgment fair Diagnostics Vital Signs (24Hr): Vital Signs - 24 hr 04/18/22 21:30 04/19/22 08:27 Temperature 97.9 F 97.7 F Pulse Rate 75 80 Respiratory Rate 18 18 Blood Pressure 141/91 H 142/79 H Pulse Oximetry 99 95 Oxygen Delivery Method Room Air Room Air BMI result Body Mass Index 39.3 Labs Results: 04/10/22 13:19 04/11/22 07:16 Medications Medications Current Medications Acetaminophen (Acetaminophen 325 Mg Tablet) 975 mg PO Q6H PRN PRN Reason: mild pain Al Hydroxide/Mg Hydroxide (Magnesium Hydrox/Alum Hydrox 30 Ml Oral.Susp) 30 ml PO Q6H PRN PRN Reason: Heartburn/Nausea Benzocaine (Throat Lozenge, Medicated Lozenge) 1 lozenge MUCOUS MEM Q2H PRN PRN Reason: Sore Throat or dry throat Chlorpromazine HCl (Chlorpromazine Hcl 100 Mg Tablet) 100 mg PO DAILY [facility] Last Admin: 04/19/22 08:50 Dose: 100 mg Chlorpromazine HCl (Chlorpromazine Hcl 100 Mg Tablet) 100 mg PO BEDTIME [facility] Last Admin: 04/18/22 21:40 Dose: 100 mg Clonidine HCl (Clonidine Hcl 0.2 Mg Tablet) 0.2 mg PO BID [facility]; Protocol Last Admin: 04/19/22 08:49 Dose: 0.2 mg Hydrocortisone (Hydrocortisone 1 % Cream 28.35 Gm Tube) 1 appl TOPICAL BID [facility]; Protocol Last Admin: 04/19/22 08:50 Dose: Not Given Hydroxyzine HCl (Hydroxyzine Hcl 25 Mg Tablet) 25 mg PO Q6H PRN PRN Reason: Anxiety Last Admin: 04/12/22 21:03 Dose: 25 mg Levothyroxine Sodium (Levothyroxine Sodium 25 Mcg Tablet) 25 mcg PO DAILY@0600 [facility] Last Admin: 04/19/22 08:49 Dose: [address] [place] Carbonate ([place] Carbonate Er 300 Mg Tablet.Er) 600 mg PO BID [facility] Last Admin: 04/19/22 08:50 Dose: 600 mg Lorazepam (Lorazepam 1 Mg Tablet) 2 mg PO Q4H PRN PRN Reason: agitation Last Admin: 04/15/22 21:44 Dose: 1 mg Magnesium Hydroxide (Milk Of Magnesia 30 Ml Oral.Susp) 30 ml PO DAILY PRN PRN Reason: Constipation Trazodone HCl (Trazodone Hcl 50 Mg Tablet) 50 mg PO BEDTIME PRN PRN Reason: Insomnia Last Admin: 04/12/22 21:03 Dose: 50 mg Allergies Allergies Allergy/AdvReac Type Severity Reaction Status Date / Time No Known Allergies Allergy Verified 04/10/22 12:57 Assessment & Plan Assessment & Plan (1) Schizoaffective disorder, depressive type: Status: Acute Code(s): F25.1 - Schizoaffective disorder, depressive type Plan Toribio is a 36 y.o. Male who carries a dx of schizoaffective DO, depressive type. He presented to [facility] crisis on 04/10/22 after his provider from his PACT program called requesting an assessment due to pt presenting as paranoid, psychotic, not taking his medication, and hearing voices telling him to cut off his fingers and other limbs. Pt has been non-adherent with risperdal for 4-5 months. No Familia?s Order. Historically, pt is higher functioning on antipsychotic medication, i.e. good with paying rent and child support, but recently he has not paid his rent.? Plan: Pt reports hx of adverse effects on antipsychotic medication. Says he has been on cogentin and he believes this helps with sleep. Willing to restart thorazine 100 mg QHS.? Q15 min safety checks, CV Monitor response to medications. Monitor for safety in the milieu. Discharge on stabilization. Patient seen. Chart reviewed. Discussed with team. Obtain collateral contact info?as needed 04/12: continue current tx. per Alta Kaba from [facility] pt with hx of TD with risperidone, used to be on ingrezza. 04/13: continue tx plan 04/14: pt got ativan 2 mg for agitation in the morning, declined PRN thorazine. no other changes made to regimen. due to lability/instability in mood, pt may best be served with the addition of a mood stabilizer such as lithium. will attempt to discuss with pt tomorrow if he is more settled. 04/15: unable to have conversation with pt. increase HS thorazine to 200 mg. ativan 2 mg PRN added. 04/16: pt refusing to take more than 100 mg thorazine at HS, so dosing reduced back to 100. at HS declined ativan, cogentin, hydrocortisone. DC cogentin as likely unnecessary and ativan as not indicated for long-term use today. lithium 600 BID was added. 04/17: met with pt, sis, and SW for extended period. no change in presentation, no change in mgmt. 04/18: mtg with PACT team held, pt rescinded his 3-day notice. slept 5.5 hours last night, up from his usual 2 or 3. refused meds last night. continue current regimen, encourage compliance. 04/19/2022: No changes to current regimen as patient feels symptoms are starting to resolve I spent minutes with the patient and/or on the patient floor today, greater than?50% of which was spent counseling/coordinating care. Reason for contiued inpatient stay Substantial Risk for: inability to function
[2022-04-19 21:50] VITALS: BP 170/96; PULSE 91; RESP 18; TEMP 36.6; O2SAT 99
[2022-04-19] MEDS: Hydrocortisone 1 % Cream 28.35 GM TUBE 1 APPL TOPICAL (21:53)
[2022-04-20 10:15] VITALS: BP 141/92; PULSE 96; RESP 95; TEMP 36.6; O2SAT 95
[2022-04-20] MEDS: Acetaminophen 325 MG TABLET 975 MG PO (10:20)
[2022-04-20] MEDS: cloNIDine HCL 0.2 MG TABLET PO (10:21)
[2022-04-20] MEDS: chlorproMAZINE HCl 100 MG TABLET PO (10:21)
[2022-04-20] MEDS: Levothyroxine Sodium 25 MCG TABLET PO (10:22)
[2022-04-20] MEDS: Lithium Carbonate ER 300 MG TABLET.ER 600 MG PO (10:22)
[2022-04-20] MEDS: Hydrocortisone 1 % Cream 28.35 GM TUBE 1 APPL TOPICAL (10:26)
--- NOTE | 2022-04-20 11:13 | P.PNPSI_ITS ---
Subjective Subjective Date of Service: 04/20/22 Reason For Visit: schizoaffective DO Interim History: Patient seen and discussed with team. Per RN, pt's BP was elevated, clonidine has been helping. Endorsing AH, has been visible in the milieu, slept in sensory room because his roommate snores, slept 4-6 hours, med complaint.? Patient evaluated today and upon interview he reports Im doing pretty good, energy is good, feels focused. Says his voices are less. Likes meds, does not want changes. Says he feels safe. Medication Compliance: Yes Side effects from medications: No Attending Groups: Yes Review of Systems Acute medical concerns: No Medical Review of Systems: unchanged Mental Status Exam Mental Status Exam Narrative: A&O. Overweight, casual attire. Poor eye contact, attentive. No Tics or Tremors. No abnormal involuntary movements. Calm, cooperative, engaged. Non-pressured speech, spontaneous with regular rate and rhythm, normal volume and prosody. No prolonged speech latency or dysarthria. Mood is ?better,? affect is appropriate, euthymic. Denies SI/SIB/HI upon inquiry. Says his AH are less. Denies VH or delusional thought content. Thoughts are goal oriented. No known cognitive or memory impairment. Insight/ Judgment fair and adequate. Diagnostics Vital Signs (24Hr): Vital Signs - 24 hr 04/19/22 21:50 04/20/22 10:15 Temperature 97.9 F 97.9 F Pulse Rate 91 96 Respiratory Rate 18 95 H Blood Pressure 170/96 H 141/92 H Pulse Oximetry 99 95 Oxygen Delivery Method Room Air Room Air BMI result Body Mass Index 39.3 Labs Results: 04/10/22 13:19 04/11/22 07:16 Medications Medications Current Medications Acetaminophen (Acetaminophen 325 Mg Tablet) 975 mg PO Q6H PRN PRN Reason: mild pain Last Admin: 04/20/22 10:20 Dose: 975 mg Al Hydroxide/Mg Hydroxide (Magnesium Hydrox/Alum Hydrox 30 Ml Oral.Susp) 30 ml PO Q6H PRN PRN Reason: Heartburn/Nausea Benzocaine (Throat Lozenge, Medicated Lozenge) 1 lozenge MUCOUS MEM Q2H PRN PRN Reason: Sore Throat or dry throat Chlorpromazine HCl (Chlorpromazine Hcl 100 Mg Tablet) 100 mg PO DAILY [facility] Last Admin: 04/20/22 10:21 Dose: 100 mg Chlorpromazine HCl (Chlorpromazine Hcl 100 Mg Tablet) 100 mg PO BEDTIME [facility] Last Admin: 04/19/22 21:52 Dose: 100 mg Clonidine HCl (Clonidine Hcl 0.2 Mg Tablet) 0.2 mg PO BID [facility]; Protocol Last Admin: 04/20/22 10:21 Dose: 0.2 mg Hydrocortisone (Hydrocortisone 1 % Cream 28.35 Gm Tube) 1 appl TOPICAL BID [facility]; Protocol Last Admin: 04/20/22 10:26 Dose: 1 appl Hydroxyzine HCl (Hydroxyzine Hcl 25 Mg Tablet) 25 mg PO Q6H PRN PRN Reason: Anxiety Last Admin: 04/12/22 21:03 Dose: 25 mg Levothyroxine Sodium (Levothyroxine Sodium 25 Mcg Tablet) 25 mcg PO DAILY@0600 [facility] Last Admin: 04/20/22 10:22 Dose: 25 mcg [place] Carbonate ([place] Carbonate Er 300 Mg Tablet.Er) 600 mg PO BID [facility] Last Admin: 04/20/22 10:22 Dose: 600 mg Magnesium Hydroxide (Milk Of Magnesia 30 Ml Oral.Susp) 30 ml PO DAILY PRN PRN Reason: Constipation Trazodone HCl (Trazodone Hcl 50 Mg Tablet) 50 mg PO BEDTIME PRN PRN Reason: Insomnia Last Admin: 04/12/22 21:03 Dose: 50 mg Allergies Allergies Allergy/AdvReac Type Severity Reaction Status Date / Time No Known Allergies Allergy Verified 04/10/22 12:57 Assessment & Plan Assessment & Plan (1) Schizoaffective disorder, depressive type: Status: Acute Code(s): F25.1 - Schizoaffective disorder, depressive type Plan Toribio is a 36 y.o. Male who carries a dx of schizoaffective DO, depressive type. He presented to [facility] crisis on 04/10/22 after his provider from his PACT program called requesting an assessment due to pt presenting as paranoid, psychotic, not taking his medication, and hearing voices telling him to cut off his fingers and other limbs. Pt has been non-adherent with risperdal for 4-5 months. No Familia?s Order. Historically, pt is higher functioning on antipsychotic medication, i.e. good with paying rent and child support, but recently he has not paid his rent.? Plan: Pt reports hx of adverse effects on antipsychotic medication. Says he has been on cogentin and he believes this helps with sleep. Willing to restart thorazine 100 mg QHS.? Q15 min safety checks, CV Monitor response to medications. Monitor for safety in the milieu. Discharge on stabilization. Patient seen. Chart reviewed. Discussed with team. Obtain collateral contact info?as needed 04/12: continue current tx. per Alta Kaba from [facility] pt with hx of TD with risperidone, used to be on ingrezza. 04/13: continue tx plan 04/14: pt got ativan 2 mg for agitation in the morning, declined PRN thorazine. no other changes made to regimen. due to lability/instability in mood, pt may best be served with the addition of a mood stabilizer such as lithium. will attempt to discuss with pt tomorrow if he is more settled. 04/15: unable to have conversation with pt. increase HS thorazine to 200 mg. ativan 2 mg PRN added. 04/16: pt refusing to take more than 100 mg thorazine at HS, so dosing reduced back to 100. at HS declined ativan, cogentin, hydrocortisone. DC cogentin as likely unnecessary and ativan as not indicated for long-term use today. lithium 600 BID was added. 04/17: met with pt, sis, and SW for extended period. no change in presentation, no change in mgmt. 04/18: mtg with PACT team held, pt rescinded his 3-day notice. slept 5.5 hours last night, up from his usual 2 or 3. refused meds last night. continue current regimen, encourage compliance. 04/19/2022: No changes to current regimen as patient feels symptoms are starting to resolve 04/20/2022: No changes, pt reports benefits on current meds. I spent minutes with the patient and/or on the patient floor today, greater than?50% of which was spent counseling/coordinating care. Patient educated on: medication risk/benefits Reason for contiued inpatient stay Substantial Risk for: rapid decompensation and med/psych decompensation
[2022-04-20 22:02] VITALS: BP 164/96; PULSE 85; RESP 18; TEMP 36.6; O2SAT 99
[2022-04-21 08:36] VITALS: BP 158/93; PULSE 86; RESP 18; TEMP 36.6; O2SAT 94
[2022-04-21] MEDS: Levothyroxine Sodium 25 MCG TABLET PO (08:37)
[2022-04-21] MEDS: chlorproMAZINE HCl 100 MG TABLET PO ×2 (08:37→16:57)
[2022-04-21] MEDS: Lithium Carbonate ER 300 MG TABLET.ER 600 MG PO ×2 (08:37→16:57)
[2022-04-21] MEDS: cloNIDine HCL 0.2 MG TABLET PO ×2 (08:37→20:38)
--- NOTE | 2022-04-21 14:05 | HO.PSYCHPN ---
Subjective Subjective Date of Service: 04/21/22 Reason For Visit: schizoaffective DO Subjective Notes: 3 Day Interim History: Patient seen and discussed with team. Pt reports he is hearing voices less. He hopes to leave soon. He denies SI/HI. He asks that lithium and thorazine bedtime dose be given with dinner instead. No behavioral concerns. Medication Compliance: Yes Side effects from medications: No Review of Systems Review of Systems Unremarkable Mental Status Exam Mental Status Exam Narrative: A&O. Overweight, casual attire. Poor eye contact, attentive. No Tics or Tremors. No abnormal involuntary movements. Calm, cooperative, engaged. Non-pressured speech, spontaneous with regular rate and rhythm, normal volume and prosody. No prolonged speech latency or dysarthria. Mood is ?better,? affect is appropriate, euthymic. Denies SI/SIB/HI upon inquiry. Says his AH are less. Denies VH or delusional thought content. Thoughts are goal oriented. No known cognitive or memory impairment. Insight/ Judgment fair and adequate. Diagnostics Vital Signs (24Hr): Vital Signs - 24 hr 04/20/22 22:02 04/21/22 08:36 Temperature 97.8 F 97.9 F Pulse Rate 85 86 Respiratory Rate 18 18 Blood Pressure 164/96 H 158/93 H Pulse Oximetry 99 94 Oxygen Delivery Method Room Air Room Air BMI result Body Mass Index 39.3 Labs Results: 04/10/22 13:19 04/11/22 07:16 Medications Medications Current Medications Acetaminophen (Acetaminophen 325 Mg Tablet) 975 mg PO Q6H PRN PRN Reason: mild pain Last Admin: 04/20/22 10:20 Dose: 975 mg Al Hydroxide/Mg Hydroxide (Magnesium Hydrox/Alum Hydrox 30 Ml Oral.Susp) 30 ml PO Q6H PRN PRN Reason: Heartburn/Nausea Benzocaine (Throat Lozenge, Medicated Lozenge) 1 lozenge MUCOUS MEM Q2H PRN PRN Reason: Sore Throat or dry throat Chlorpromazine HCl (Chlorpromazine Hcl 100 Mg Tablet) 100 mg PO DAILY [facility] Last Admin: 04/21/22 08:37 Dose: 100 mg Chlorpromazine HCl (Chlorpromazine Hcl 100 Mg Tablet) 100 mg PO DAILY@1700 [facility] Clonidine HCl (Clonidine Hcl 0.2 Mg Tablet) 0.2 mg PO BID [facility]; Protocol Last Admin: 04/21/22 08:37 Dose: 0.2 mg Hydrocortisone (Hydrocortisone 1 % Cream 28.35 Gm Tube) 1 appl TOPICAL BID [facility]; Protocol Last Admin: 04/21/22 12:03 Dose: Not Given Hydroxyzine HCl (Hydroxyzine Hcl 25 Mg Tablet) 25 mg PO Q6H PRN PRN Reason: Anxiety Last Admin: 04/12/22 21:03 Dose: 25 mg Levothyroxine Sodium (Levothyroxine Sodium 25 Mcg Tablet) 25 mcg PO DAILY@0600 [facility] Last Admin: 04/21/22 08:37 Dose: 25 mcg [place] Carbonate ([place] Carbonate Er 300 Mg Tablet.Er) 600 mg PO BID@0900,1700 [facility] Magnesium Hydroxide (Milk Of Magnesia 30 Ml Oral.Susp) 30 ml PO DAILY PRN PRN Reason: Constipation Trazodone HCl (Trazodone Hcl 50 Mg Tablet) 50 mg PO BEDTIME PRN PRN Reason: Insomnia Last Admin: 04/12/22 21:03 Dose: 50 mg Allergies Allergies Allergy/AdvReac Type Severity Reaction Status Date / Time No Known Allergies Allergy Verified 04/10/22 12:57 Assessment & Plan Assessment & Plan (1) Schizoaffective disorder, depressive type: Status: Acute Code(s): F25.1 - Schizoaffective disorder, depressive type Plan Toribio is a 36 y.o. Male who carries a dx of schizoaffective DO, depressive type. He presented to [facility] crisis on 04/10/22 after his provider from his PACT program called requesting an assessment due to pt presenting as paranoid, psychotic, not taking his medication, and hearing voices telling him to cut off his fingers and other limbs. Pt has been non-adherent with risperdal for 4-5 months. No Familia?s Order. Historically, pt is higher functioning on antipsychotic medication, i.e. good with paying rent and child support, but recently he has not paid his rent.? Plan: Pt reports hx of adverse effects on antipsychotic medication. Says he has been on cogentin and he believes this helps with sleep. Willing to restart thorazine 100 mg QHS.? Q15 min safety checks, CV Monitor response to medications. Monitor for safety in the milieu. Discharge on stabilization. Patient seen. Chart reviewed. Discussed with team. Obtain collateral contact info?as needed 04/12: continue current tx. per Alta Kaba from [facility] pt with hx of TD with risperidone, used to be on ingrezza. 04/13: continue tx plan 04/14: pt got ativan 2 mg for agitation in the morning, declined PRN thorazine. no other changes made to regimen. due to lability/instability in mood, pt may best be served with the addition of a mood stabilizer such as lithium. will attempt to discuss with pt tomorrow if he is more settled. 04/15: unable to have conversation with pt. increase HS thorazine to 200 mg. ativan 2 mg PRN added. 04/16: pt refusing to take more than 100 mg thorazine at HS, so dosing reduced back to 100. at HS declined ativan, cogentin, hydrocortisone. DC cogentin as likely unnecessary and ativan as not indicated for long-term use today. lithium 600 BID was added. 04/17: met with pt, sis, and SW for extended period. no change in presentation, no change in mgmt. 04/18: mtg with PACT team held, pt rescinded his 3-day notice. slept 5.5 hours last night, up from his usual 2 or 3. refused meds last night. continue current regimen, encourage compliance. 04/19/2022: No changes to current regimen as patient feels symptoms are starting to resolve 04/20/2022: No changes, pt reports benefits on current meds. 04/21 continue current tx plan. I spent minutes with the patient and/or on the patient floor today, greater than?50% of which was spent counseling/coordinating care. Reason for contiued inpatient stay Substantial Risk for: inability to function
[2022-04-21 20:39] VITALS: BP 135/91; PULSE 100; RESP 18; TEMP 36.4; O2SAT 96
[2022-04-22 08:15] VITALS: BP 135/89; PULSE 84; RESP 16; TEMP 36.7; O2SAT 97
[2022-04-22] MEDS: Levothyroxine Sodium 25 MCG TABLET PO (08:20)
[2022-04-22] MEDS: chlorproMAZINE HCl 100 MG TABLET PO ×3 (08:20→20:59)
[2022-04-22] MEDS: cloNIDine HCL 0.2 MG TABLET PO ×2 (08:21→20:59)
[2022-04-22] MEDS: Lithium Carbonate ER 300 MG TABLET.ER 600 MG PO ×2 (08:21→17:44)
[2022-04-22] MEDS: Hydrocortisone 1 % Cream 28.35 GM TUBE 1 APPL TOPICAL ×2 (09:32→21:00)
[2022-04-22 12:35] LABS: MANUAL DIFF FLAG NO
[2022-04-22 12:45] LABS: Basophils Percent Auto 0.5 % (0-2); Eosinophils Absolute Auto 0.5 X10*3/uL (0.0-0.4); Hematocrit 43.6 % (42.0-52.0); Hemoglobin 14.7 g/dl (14.0-18.0); Imm Gran Abs Auto 0.05 X10*3/uL (0.00-0.03); Imm Gran Pct Auto 0.7 % (0.0-0.4); Lymphocytes Absolute Auto 1.6 X10*3/uL (1.2-4.9); Lymphocytes Percent Auto 21.4 % (20-40); Mean Corpuscular HGB Conc 33.7 g/dl (31.0-36.0); Mean Corpuscular Hemoglobin 30.2 pg (27.0-33.0); Mean Corpuscular Volume 89.7 fL (80.0-98.0); Mean Platelet Volume 9.4 fL (9.4-12.4); Monocytes Absolute Auto 0.9 X10*3/uL (0.1-1.2); Monocytes Percent Auto 11.3 % (2-11); Neutrophils Absolute Auto 4.6 x10*3/uL (2.0-8.3); Neutrophils Percent Auto 60.1 % (45-73); Platelet Count 232 X10*3/uL (160-400); Red Blood Count 4.86 X10*6/uL (4.60-5.80); Red Cell Distribution Width 12.5 % (11.0-16.0); White Blood Count 7.6 X10*3/uL (4.8-10.8)
[2022-04-22 12:51] LABS: Lithium 0.52 mmol/L (0.60-1.20)
[2022-04-22 12:55] LABS: Anion Gap 13 (12-20); Blood Urea Nitrogen 11 mg/dL (9-16); Calcium 9.9 mg/dL (8.4-10.2); Carbon Dioxide 27 mmol/L (22-29); Chloride 93 mmol/L (96-108); Creatinine Clr Calc Pharmacy 123.4; Estimated Glomerular Filt Rate > 60; Glucose Random 338 mg/dL (60-115); Potassium 4.3 mmol/L (3.3-5.1); Sodium 129 mmol/L (135-145)
--- NOTE | 2022-04-22 13:13 | P.PNPSI_ITS ---
Subjective Subjective Date of Service: 04/22/22 Reason For Visit: schizoaffective DO Interim History: pt found resting in his room. more calm and organized and cooperative than he had been last week. asking to have meds changed due to feeling sedated in the morning. agrees to transfer all thorazine to . consolidate meds for once in the morning, once with dinner, and some at HS, reducing number of med administrations from 4 to 3 daily. informed we will draw labs today for lithium level. surprised to find out he will be discharging on . unaware his PACT team will be coming to meet with him today. states he is sleeping, eating, getting along with others well. per staff, 3-day up . hearing fewer AH. less RIS. feels safe. happy meds were moved to dinner. mode dep/anx. good sleep and appetite. Mental Status Exam Mental Status Exam Narrative: A&O. resting in bedl, in street clothes, overweight. good eye contact, attentive. No Tics or Tremors. No abnormal involuntary movements. speech spontaneous with nml rate, nml loudness, nml amount, and nml prosody. No prolonged speech latency or dysarthria. affect is constricted, normo-intense, non-labile. no SI/HI/AVH expressed. Thoughts are linear and goal-oriented. No known cognitive or memory impairment. Insight/ Judgment impaired. Diagnostics Vital Signs (24Hr): Vital Signs - 24 hr 04/21/22 20:39 04/22/22 08:15 Temperature 97.6 F 98.0 F Pulse Rate 100 84 Respiratory Rate 18 16 Blood Pressure 135/91 H 135/89 Pulse Oximetry 96 97 Oxygen Delivery Method Room Air Room Air BMI result Body Mass Index 39.3 Labs Results: 04/22/22 12:21 04/22/22 12:21 Labs: Laboratory Results - last 48 hr 04/22/22 04/22/22 04/22/22 12: 12: 12:22 WBC 7.6 RBC 4.86 Hgb 14.7 Hct 43.6 MCV 89.7 MCH 30.2 MCHC 33.7 RDW 12.5 Plt Count 232 MPV 9.4 Immature Gran % (Auto) 0.7 H Neut % (Auto) 60.1 Lymph % (Auto) 21.4 [place] % (Auto) 11.3 H Eos % (Auto) 6.0 H Baso % (Auto) 0.5 Lymph # (Auto) 1.6 [place] # (Auto) 0.9 Eos # (Auto) 0.5 H Baso # (Auto) 0.0 Abs Immat Gran (auto) 0.05 H Absolute Neuts (auto) 4.6 Absolute Nucleated RBC 0.000 Nucleated RBC % (auto) 0.0 Sodium 129 L Potassium 4.3 Chloride 93 L Carbon Dioxide 27 Anion Gap 13 BUN 11 Creatinine 1.15 Estim Creat Clear Calc 123.4 Estimated GFR > 60 Random Glucose 338 H D Calcium 9.9 [place] 0.52 L Medications Medications Current Medications Acetaminophen (Acetaminophen 325 Mg Tablet) 975 mg PO Q6H PRN PRN Reason: mild pain Last Admin: 04/20/22 10:20 Dose: 975 mg Al Hydroxide/Mg Hydroxide (Magnesium Hydrox/Alum Hydrox 30 Ml Oral.Susp) 30 ml PO Q6H PRN PRN Reason: Heartburn/Nausea Benzocaine (Throat Lozenge, Medicated Lozenge) 1 lozenge MUCOUS MEM Q2H PRN PRN Reason: Sore Throat or dry throat Chlorpromazine HCl (Chlorpromazine Hcl 100 Mg Tablet) 100 mg PO DAILY@1700 [facility] Last Admin: 04/21/22 16:57 Dose: 100 mg Chlorpromazine HCl (Chlorpromazine Hcl 100 Mg Tablet) 100 mg PO BEDTIME [facility] Clonidine HCl (Clonidine Hcl 0.2 Mg Tablet) 0.2 mg PO BID [facility]; Protocol Last Admin: 04/22/22 08:21 Dose: 0.2 mg Hydrocortisone (Hydrocortisone 1 % Cream 28.35 Gm Tube) 1 appl TOPICAL BID [facility]; Protocol Last Admin: 04/22/22 09:32 Dose: 1 appl Hydroxyzine HCl (Hydroxyzine Hcl 25 Mg Tablet) 25 mg PO Q6H PRN PRN Reason: Anxiety Last Admin: 04/12/22 21:03 Dose: 25 mg Levothyroxine Sodium (Levothyroxine Sodium 25 Mcg Tablet) 25 mcg PO DAILY@0600 [facility] [place] Carbonate ([place] Carbonate Er 300 Mg Tablet.Er) 600 mg PO BID@0900,1700 [facility] Last Admin: 04/22/22 08:21 Dose: 600 mg Magnesium Hydroxide (Milk Of Magnesia 30 Ml Oral.Susp) 30 ml PO DAILY PRN PRN Reason: Constipation Trazodone HCl (Trazodone Hcl 50 Mg Tablet) 50 mg PO BEDTIME PRN PRN Reason: Insomnia Last Admin: 04/12/22 21:03 Dose: 50 mg Allergies Allergies Allergy/AdvReac Type Severity Reaction Status Date / Time No Known Allergies Allergy Verified 04/10/22 12:57 Assessment & Plan Assessment & Plan (1) Schizoaffective disorder, depressive type: Status: Acute Code(s): F25.1 - Schizoaffective disorder, depressive type Plan Toribio is a 36 y.o. Male who carries a dx of schizoaffective DO, depressive type. He presented to [facility] crisis on 04/10/22 after his provider from his PACT program called requesting an assessment due to pt presenting as paranoid, psychotic, not taking his medication, and hearing voices telling him to cut off his fingers and other limbs. Pt has been non-adherent with risperdal for 4-5 months. No Familia?s Order. Historically, pt is higher functioning on antipsychotic medication, i.e. good with paying rent and child support, but recently he has not paid his rent.? Plan: Pt reports hx of adverse effects on antipsychotic medication. Says he has been on cogentin and he believes this helps with sleep. Willing to restart thorazine 100 mg QHS.? Q15 min safety checks, CV Monitor response to medications. Monitor for safety in the milieu. Discharge on stabilization. Patient seen. Chart reviewed. Discussed with team. Obtain collateral contact info?as needed 04/12: continue current tx. per Alta Kaba from [facility] pt with hx of TD with r isperidone, used to be on ingrezza. 04/13: continue tx plan 04/14: pt got ativan 2 mg for agitation in the morning, declined PRN thorazine. no other changes made to regimen. due to lability/instability in mood, pt may best be served with the addition of a mood stabilizer such as lithium. will attempt to discuss with pt tomorrow if he is more settled. 04/15: unable to have conversation with pt. increase HS thorazine to 200 mg. ativan 2 mg PRN added. 04/16: pt refusing to take more than 100 mg thorazine at HS, so dosing reduced back to 100. at HS declined ativan, cogentin, hydrocortisone. DC cogentin as likely unnecessary and ativan as not indicated for long-term use today. lithium 600 BID was added. 04/17: met with pt, sis, and SW for extended period. no change in presentation, no change in mgmt. 04/18: mtg with PACT team held, pt rescinded his 3-day notice. slept 5.5 hours last night, up from his usual 2 or 3. refused meds last night. continue current regimen, encourage compliance. 04/19/2022: No changes to current regimen as patient feels symptoms are starting to resolve 04/20/2022: No changes, pt reports benefits on current meds. 04/21 continue current tx plan. 04/22: lithium level 0.52 on 600 BID. will plan to increase dosing to 750 BID tomorrow. much improved since starting lithium. I spent ___25___ minutes with the patient and/or on the patient floor today, greater than?50% of which was spent counseling/coordinating care. Reason for contiued inpatient stay Substantial Risk for: inability to function and rapid decompensation
--- NOTE | 2022-04-22 15:02 | HO.PM.IMCN ---
History of Present Illness Data of Consult Service Date: 04/22/22 Primary Care Provider: Unknown Physician HPI 35/m with hypothyroidism, Schizoaffective desorder admitted to [facility] for treatment of schizoaffective desorder since April 10 and asked to evaluate patient with hyperglycemia with ramdom glucose of 338, on April 10 it was 96, hemoglobin A1C is on April 10 was 6.6, repeat blood sugar by finger prick was 338. He has been having polydypsia. His mother is diabetic Review of Systems Review of Systems: Gen: no fever Resp: no sob, no cough CV: no chest, no BASS, no leg edema GI: No n/v, no abd pain Neuro: No confusion Yes all other systems are reviewed and are negative [facility] Medical History Hypothyroidism Schizoaffective disorder, depressive type Family History (Updated 04/22/22 @ 15:21 by Enio Aguirre MD) Mother Diabetes Social History Household Members: Friend(s) Housing: Apartment Do you presently have visiting nurse or other home services: No Patient Tobacco Use Status: Current everyday Tobacco user Tobacco use type: Cigarette Cigarettes Per Day: 2 Smoked in Last 30 Days: Yes Patient Interested in Nicotine Replacement: No Patient Given Instructions on How to Stop Smoking: Yes Date Education Initiated: 04/10/22 Second Hand Smoke Exposure: No Use of substances other than those prescribed or required for medical reasons: Yes Substance Use Type: Marijuana Substance Use Frequency: Daily Last Used Substance: Just Prior to Admission Currently Displaying Signs/Symptoms of Drug Intoxication Withdrawal: No Any prior treatment program specific to substance use: No Have you been hit, kicked, punched, or otherwise hurt by someone within the past year? If so, by whom?: No Do you feel safe in your current relationship?: No Current Relationship Is there a partner from a previous relationship who is making you feel unsafe now?: No Are you made to feel afraid or neglected: No Advance Directives: No Advance Directives Information Provided: No Do you have thoughts of harming others: None Do you have a plan to hurt others: No Plan Recently lost weight without trying: No Eating poorly because of decreased appetite: No Nutrition Risks: No Nutritional Risk service: No Sexual orientation: Don't Know Meds Allergies Allergy/AdvReac Type Severity Reaction Status Date / Time No Known Allergies Allergy Verified 04/10/22 12:57 Active Medications: Current Medications Acetaminophen (Acetaminophen 325 Mg Tablet) 975 mg PO Q6H PRN PRN Reason: mild pain Last Admin: 04/20/22 10:20 Dose: 975 mg Al Hydroxide/Mg Hydroxide (Magnesium Hydrox/Alum Hydrox 30 Ml Oral.Susp) 30 ml PO Q6H PRN PRN Reason: Heartburn/Nausea Benzocaine (Throat Lozenge, Medicated Lozenge) 1 lozenge MUCOUS MEM Q2H PRN PRN Reason: Sore Throat or dry throat Chlorpromazine HCl (Chlorpromazine Hcl 100 Mg Tablet) 100 mg PO DAILY@1700 [facility] Last Admin: 04/21/22 16:57 Dose: 100 mg Chlorpromazine HCl (Chlorpromazine Hcl 100 Mg Tablet) 100 mg PO BEDTIME NITA Clonidine HCl (Clonidine Hcl 0.2 Mg Tablet) 0.2 mg PO BID [facility]; Protocol Last Admin: 04/22/22 08:21 Dose: 0.2 mg Hydrocortisone (Hydrocortisone 1 % Cream 28.35 Gm Tube) 1 appl TOPICAL BID [facility]; Protocol Last Admin: 04/22/22 09:32 Dose: 1 appl Hydroxyzine HCl (Hydroxyzine Hcl 25 Mg Tablet) 25 mg PO Q6H PRN PRN Reason: Anxiety Last Admin: 04/12/22 21:03 Dose: 25 mg Levothyroxine Sodium (Levothyroxine Sodium 25 Mcg Tablet) 25 mcg PO DAILY@0600 [facility] [place] Carbonate ([place] Carbonate Er 300 Mg Tablet.Er) 600 mg PO BID@0900,1700 [facility] Last Admin: 04/22/22 08:21 Dose: 600 mg Magnesium Hydroxide (Milk Of Magnesia 30 Ml Oral.Susp) 30 ml PO DAILY PRN PRN Reason: Constipation Trazodone HCl (Trazodone Hcl 50 Mg Tablet) 50 mg PO BEDTIME PRN PRN Reason: Insomnia Last Admin: 04/12/22 21:03 Dose: 50 mg Home Medications Medication Instructions Recorded Confirmed Last Taken Type benztropine 1 mg tablet 1 tab PO BID 04/10/22 04/10/22 04/09/22 History Physical Exam Vital Signs and Narrative: Vital Signs: Last Vital Signs Temp 98.0 F 06/21/22 08:15 Pulse 84 04/22/22 08:15 Resp 16 04/22/22 08:15 BP 135/89 04/22/22 08:15 Pulse Ox 97 04/22/22 08:15 O2 Del Method 04/22/22 08:15 BMI result Body Mass Index 39.3 Const: Other: General: AO X 3, no acute distress Resp: CTA bilateral CVS: S1,S2,RRR GI: +BS, NT, no distention Skin: No rash Neuro: motor grossly intact, CN II-XII intact Psych: appropriate affect Results Labs CBC and Chem 7: 04/22/22 12:21 04/22/22 12:21 Labs: Laboratory Results - last 24 hr 04/22/22 04/22/22 04/22/22 12:21 12:21 12:22 MCV 89.7 MCH 30.2 MCHC 33.7 RDW 12.5 Plt Count 232 MPV 9.4 Immature Gran % (Auto) 0.7 H Neut % (Auto) 60.1 Lymph % (Auto) 21.4 [place] % (Auto) 11.3 H Eos % (Auto) 6.0 H Baso % (Auto) 0.5 Lymph # (Auto) 1.6 [place] # (Auto) 0.9 Eos # (Auto) 0.5 H Baso # (Auto) 0.0 Abs Immat Gran (auto) 0.05 H Absolute Neuts (auto) 4.6 Absolute Nucleated RBC 0.000 Nucleated RBC % (auto) 0.0 Anion Gap 13 Estim Creat Clear Calc 123.4 Estimated GFR > 60 Random Glucose 338 H D Calcium 9.9 [place] 0.52 L Assessment and Plan (1) Schizoaffective disorder, depressive type: (2) Hypothyroidism: Plan 36/m with Schizoaffective desorder w/ New onset diabetes--recommend starting Metformin 500 bid, diabetic diet, weight loos and diabetes/nutritional teaching HypOnatremia--likely d/t polydypsia, and much less extent Chlorpmazine--monitor Hypothyroidism--continue Levothyroxine
[2022-04-22 15:22] LABS: Glucose, Whole Blood 349 mg/dL (60-115)
[2022-04-22] MEDS: metFORMIN HCl 500 MG TABLET PO (17:44)
[2022-04-22 17:46] LABS: Glucose, Whole Blood 271 mg/dL (60-115)
[2022-04-22 18:00] VITALS: BP 135/95; PULSE 84; TEMP 36.4; O2SAT 98
[2022-04-22] MEDS: Insulin Lispro 100 UNIT/ML 3 ML VIAL SUBCUT ×2 (18:25→20:57)
[2022-04-22 20:57] LABS: Glucose, Whole Blood 259 mg/dL (60-115)
[2022-04-23 00:01] LABS: Glucose, Whole Blood 330 mg/dL (60-115)
[2022-04-23] MEDS: Levothyroxine Sodium 25 MCG TABLET PO (06:05)
[2022-04-23 08:00] VITALS: BP 156/85; PULSE 87; RESP 16; TEMP 36.4; O2SAT 95
[2022-04-23] MEDS: Hydrocortisone 1 % Cream 28.35 GM TUBE 1 APPL TOPICAL ×2 (08:29→21:47)
[2022-04-23] MEDS: Lithium Carbonate ER 300 MG TABLET.ER 600 MG PO (08:30)
[2022-04-23] MEDS: cloNIDine HCL 0.2 MG TABLET PO ×2 (08:30→21:47)
[2022-04-23] MEDS: metFORMIN HCl 500 MG TABLET PO ×2 (08:30→17:18)
[2022-04-23 08:59] LABS: Glucose, Whole Blood 280 mg/dL (60-115)
[2022-04-23] MEDS: Insulin Lispro 100 UNIT/ML 3 ML VIAL SUBCUT ×4 (09:23→21:47)
[2022-04-23 12:48] LABS: Glucose, Whole Blood 216 mg/dL (60-115)
--- NOTE | 2022-04-23 14:41 | HO.PSYCHPN ---
Subjective Subjective Date of Service: 04/23/22 Reason For Visit: schizoaffective DO Interim History: discuss new DM Dx, not having him on insulin at discharge, his need to F/U with PCP. planning for discharge tomorrow. calm, pleasant, organized. per staff, 3-day matures tomorrow. attending groups. +AH, but they are not bothering him. seen by hospitalist yesterday and started on metformin and insulin sliding scale. Mental Status Exam Mental Status Exam Narrative: A&O. in street clothes, overweight. good eye contact, attentive. No Tics or Tremors. No abnormal involuntary movements. speech spontaneous with nml rate, nml loudness, nml amount, and nml prosody. No prolonged speech latency or dysarthria. affect is more flexible, normo-intense, non-labile. mood is great. no SI/HI/AVH expressed. Thoughts are linear and goal-oriented. No known cognitive or memory impairment. Insight/ Judgment impaired. Diagnostics Vital Signs (24Hr): Vital Signs - 24 hr 04/22/22 18:00 04/23/22 08:00 Temperature 97.6 F 97.6 F Pulse Rate 84 87 Respiratory Rate 16 Blood Pressure 135/95 H 156/85 H Pulse Oximetry 98 95 Oxygen Delivery Method Room Air Room Air BMI result Body Mass Index 39.3 Labs Results: 04/22/22 12:21 04/22/22 12:21 Labs: Laboratory Results - last 48 hr 04/22/22 04/22/22 04/22/22 12:21 12:21 12:22 WBC 7.6 RBC 4.86 Hgb 14.7 Hct 43.6 MCV 89.7 MCH 30.2 MCHC 33.7 RDW 12.5 Plt Count 232 MPV 9.4 Immature Gran % (Auto) 0.7 H Neut % (Auto) 60.1 Lymph % (Auto) 21.4 [place] % (Auto) 11.3 H Eos % (Auto) 6.0 H Baso % (Auto) 0.5 Lymph # (Auto) 1.6 [place] # (Auto) 0.9 Eos # (Auto) 0.5 H Baso # (Auto) 0.0 Abs Immat Gran (auto) 0.05 H Absolute Neuts (auto) 4.6 Absolute Nucleated RBC 0.000 Nucleated RBC % (auto) 0.0 Sodium 129 L Potassium 4.3 Chloride 93 L Carbon Dioxide 27 Anion Gap 13 BUN 11 Creatinine 1.15 Estim Creat Clear Calc 123.4 Estimated GFR > 60 POC Glucose Random Glucose 338 H D Calcium 9.9 [place] 0.52 L 04/22/22 04/22/22 04/22/22 15:18 17:37 20:43 WBC RBC Hgb Hct MCV MCH MCHC RDW Plt Count MPV Immature Gran % (Auto) Neut % (Auto) Lymph % (Auto) [place] % (Auto) Eos % (Auto) Baso % (Auto) Lymph # (Auto) [place] # (Auto) Eos # (Auto) Baso # (Auto) Abs Immat Gran (auto) Absolute Neuts (auto) Absolute Nucleated RBC Nucleated RBC % (auto) Sodium Potassium Chloride Carbon Dioxide Anion Gap BUN Creatinine Estim Creat Clear Calc Estimated GFR POC Glucose 349 H 271 H 259 H Random Glucose Calcium [place] 04/22/22 04/23/22 04/23/22 23:56 08:54 12:44 WBC RBC Hgb Hct MCV MCH MCHC RDW Plt Count MPV Immature Gran % (Auto) Neut % (Auto) Lymph % (Auto) [place] % (Auto) Eos % (Auto) Baso % (Auto) Lymph # (Auto) [place] # (Auto) Eos # (Auto) Baso # (Auto) Abs Immat Gran (auto) Absolute Neuts (auto) Absolute Nucleated RBC Nucleated RBC % (auto) Sodium Potassium Chloride Carbon Dioxide Anion Gap BUN Creatinine Estim Creat Clear Calc Estimated GFR POC Glucose 330 H 280 H 216 H Random Glucose Calcium [place] Medications Medications Current Medications Acetaminophen (Acetaminophen 325 Mg Tablet) 975 mg PO Q6H PRN PRN Reason: mild pain Last Admin: 04/20/22 10:20 Dose: 975 mg Al Hydroxide/Mg Hydroxide (Magnesium Hydrox/Alum Hydrox 30 Ml Oral.Susp) 30 ml PO Q6H PRN PRN Reason: Heartburn/Nausea Benzocaine (Throat Lozenge, Medicated Lozenge) 1 lozenge MUCOUS MEM Q2H PRN PRN Reason: Sore Throat or dry throat Chlorpromazine HCl (Chlorpromazine Hcl 100 Mg Tablet) 100 mg PO DAILY@1700 [facility] Last Admin: 04/22/22 17:44 Dose: 100 mg Chlorpromazine HCl (Chlorpromazine Hcl 100 Mg Tablet) 100 mg PO BEDTIME [facility] Last Admin: 04/22/22 20:59 Dose: 100 mg Clonidine HCl (Clonidine Hcl 0.2 Mg Tablet) 0.2 mg PO BID [facility]; Protocol Last Admin: 04/23/22 08:30 Dose: 0.2 mg Hydrocortisone (Hydrocortisone 1 % Cream 28.35 Gm Tube) 1 appl TOPICAL BID [facility]; Protocol Last Admin: 04/23/22 08:29 Dose: 1 appl Hydroxyzine HCl (Hydroxyzine Hcl 25 Mg Tablet) 25 mg PO Q6H PRN PRN Reason: Anxiety Last Admin: 04/12/22 21:03 Dose: 25 mg Insulin Human Lispro (Insulin Lispro 100 Unit/Ml 3 Ml Vial) 0 unit SUBCUT QIDACHS [facility]; Protocol Last Admin: 04/23/22 13:00 Dose: 4 unit Levothyroxine Sodium (Levothyroxine Sodium 25 Mcg Tablet) 25 mcg PO DAILY@0600 [facility] Last Admin: 04/23/22 06:05 Dose: 25 mcg [place] Carbonate ([place] Carbonate Er 450 Mg Tablet.Er) 450 mg PO BID@0900,1700 [facility] [place] Carbonate ([place] Carbonate Er 300 Mg Tablet.Er) 300 mg PO BID@0900,1700 [facility] Magnesium Hydroxide (Milk Of Magnesia 30 Ml Oral.Susp) 30 ml PO DAILY PRN PRN Reason: Constipation Metformin HCl (Metformin Hcl 500 Mg Tablet) 500 mg PO BIDWM [facility] Last Admin: 04/23/22 08:30 Dose: 500 mg Trazodone HCl (Trazodone Hcl 50 Mg Tablet) 50 mg PO BEDTIME PRN PRN Reason: Insomnia Last Admin: 04/12/22 21:03 Dose: 50 mg Allergies Allergies Allergy/AdvReac Type Severity Reaction Status Date / Time No Known Allergies Allergy Verified 04/10/22 12:57 Assessment & Plan Assessment & Plan (1) Schizoaffective disorder, depressive type: Code(s): F25.1 - Schizoaffective disorder, depressive type (2) Hypothyroidism: Code(s): E03.9 - Hypothyroidism, unspecified Assessment and Plan: 36/m with Schizoaffective desorder w/ New onset diabetes--recommend starting Metformin 500 bid, diabetic diet, weight loos and diabetes/nutritional teaching HypOnatremia--likely d/t polydypsia, and much less extent Chlorpmazine--monitor Hypothyroidism--continue Levothyroxine Plan Toribio is a 36 y.o. Male who carries a dx of schizoaffective DO, depressive type. He presented to [facility] crisis on 04/10/22 after his provider from his PACT program called requesting an assessment due to pt presenting as paranoid, psychotic, not taking his medication, and hearing voices telling him to cut off his fingers and other limbs. Pt has been non-adherent with risperdal for 4-5 months. No Familia?s Order. Historically, pt is higher functioning on antipsychotic medication, i.e. good with paying rent and child support, but recently he has not paid his rent.? Plan: Pt reports hx of adverse effects on antipsychotic medication. Says he has been on cogentin and he believes this helps with sleep. Willing to restart thorazine 100 mg QHS.? Q15 min safety checks, CV Monitor response to medications. Monitor for safety in the milieu. Discharge on stabilization. Patient seen. Chart reviewed. Discussed with team. Obtain collateral contact info?as needed 04/12: continue current tx. per Alta Kaba from [facility] pt with hx of TD with risperidone, used to be on ingrezza. 04/13: continue tx plan 04/14: pt got ativan 2 mg for agitation in the morning, declined PRN thorazine.? no other changes made to regimen.? due to lability/instability in mood, pt may best be served with the addition of a mood stabilizer such as lithium.? will attempt to discuss with pt tomorrow if he is more settled. 04/15: unable to have conversation with pt.? increase HS thorazine to 200 mg.? ativan 2 mg PRN added. 04/16: pt refusing to take more than 100 mg thorazine at HS, so dosing reduced back to 100.? at HS declined ativan, cogentin, hydrocortisone.? DC cogentin as likely unnecessary and ativan as not indicated for long-term use today.? lithium 600 BID was added. 04/17: met with pt, sis, and SW for extended period.? no change in presentation, no change in mgmt. 04/18: mtg with PACT team held, pt rescinded his 3-day notice.? slept 5.5 hours last night, up from his usual 2 or 3.? refused meds last night.? continue current regimen, encourage compliance. ? 04/19/2022: No changes to current regimen as patient feels symptoms are starting to resolve 04/20/2022: No changes, pt reports benefits on current meds. 04/21 continue current tx plan. 04/22: lithium level 0.52 on 600 BID.? will plan to increase dosing to 750 BID tomorrow.? much improved since starting lithium. seen by medicine for new DM Dx and started on metformin and SSI. 04/23: lithium increased to 750 BID. DM education ordered. discharge tomorrow upon expiry of 3-day notice. I spent ___25___ minutes with the patient and/or on the patient floor today, greater than?50% of which was spent counseling/coordinating care. Reason for contiued inpatient stay Substantial Risk for: inability to function and rapid decompensation
--- NOTE | 2022-04-23 15:27 | MHC.CLN ---
NUTRITION CONSULT CONSULT FOR NUTRITION EDUCATION FOR NEWLY DIAGNOSED DM. VISITED WITH PATIENT ON UNIT. PROVIDED HANDOUT PLANNING HEALTHY MEALS AND DISCUSSED NUTRITION AND DIABETES. PATIENT RECEPTIVE TO INFORMATION PROVIDED. COULD BENEFIT FROM OUTPATIENT NUTRITIONAL COUNSELING. ADVISED TO START WITH SMALL, DOABLE STEPS. DISCUSSED HIGH SUGAR DRINKS AND THAT OMITTING COLA AND LIMITING FRUIT JUICE WAS ADVISABLE.
[2022-04-23 17:13] LABS: Glucose, Whole Blood 183 mg/dL (60-115)
[2022-04-23] MEDS: Lithium Carbonate ER 450 MG TABLET.ER PO (17:17)
[2022-04-23] MEDS: Lithium Carbonate ER 300 MG TABLET.ER PO (17:17)
[2022-04-23] MEDS: chlorproMAZINE HCl 100 MG TABLET PO ×2 (17:17→21:47)
[2022-04-23 21:45] VITALS: BP 141/97; PULSE 914; RESP 16; TEMP 36.6; O2SAT 99
[2022-04-23 23:15] LABS: Glucose, Whole Blood 254 mg/dL (60-115)
[2022-04-24 08:04] VITALS: BP 137/101; PULSE 87; RESP 16; TEMP 36.6; O2SAT 97
[2022-04-24] MEDS: Levothyroxine Sodium 25 MCG TABLET PO (08:20)
[2022-04-24] MEDS: metFORMIN HCl 500 MG TABLET PO (08:21)
[2022-04-24] MEDS: Lithium Carbonate ER 450 MG TABLET.ER PO (08:21)
[2022-04-24] MEDS: cloNIDine HCL 0.2 MG TABLET PO (08:21)
[2022-04-24] MEDS: Lithium Carbonate ER 300 MG TABLET.ER PO (08:22)
[2022-04-24 08:27] LABS: Glucose, Whole Blood 267 mg/dL (60-115)
[2022-04-24] MEDS: Insulin Lispro 100 UNIT/ML 3 ML VIAL SUBCUT (08:51)
[2022-04-24] MEDS: Hydrocortisone 1 % Cream 28.35 GM TUBE 1 APPL TOPICAL (08:54)
--- NOTE | 2022-04-24 11:42 | P.DS_ITS ---
DS: Providers Provider Date of Service: 04/24/22 Date of admission: 04/10/22 18:33 Primary care physician: Unknown Physician Consults: 04/22/22 14:23 Consult to Hospitalist Routine Consulting Provider: Hospitalist Reason For Exam: random BS 338, HbA1C 6.1. plz eval and rec mgmt. DS: Diagnosis Discharge Diagnosis (1) Schizoaffective disorder, depressive type: (2) Hypothyroidism: DS: Medications Discharge Medications Home Medications: Previous Rx's Medication Instructions Recorded benztropine 1 mg tablet 1 tab PO BID 30 days #60 tabs 04/24/22 chlorpromazine 100 mg tablet 100 mg PO BID 30 days #60 tabs 04/24/22 clonidine HCl 0.2 mg tablet 0.2 mg PO BID 30 days #60 tabs 04/24/22 hydrocortisone 1 % topical cream 1 appl topical BID 30 days #100 04/24/22 grams levothyroxine 25 mcg tablet 25 mcg PO DAILY@0600 30 days #30 04/24/22 tabs lithium carbonate 300 mg 300 mg PO BID@0900,1700 30 days 04/24/22 tablet,extended release #60 tabs lithium carbonate 450 mg 450 mg PO BID@0900,1700 30 days 04/24/22 tablet,extended release #60 tabs metformin 500 mg tablet 500 mg PO BIDWM 30 days #60 tabs 04/24/22 Mental Status Exam Mental Status Exam Narrative: A&O. in street clothes, overweight. good eye contact, attentive. No Tics or Tremors. No abnormal involuntary movements. speech spontaneous with nml rate, nml loudness, nml amount, and nml prosody. No prolonged speech latency or dysarthria. affect is more flexible, normo-intense, non-labile. mood is fair. +AH. no SI/SIBI/HI/VH. Thoughts are linear and goal-oriented. No known cognitive or memory impairment. Insight/ Judgment impaired but improving. Data Data Completed and Pending Completed studies during hospitalization [Text1]: 04/22/22 04/22/22 04/22/22 12:21 12:21 12:22 WBC 7.6 RBC 4.86 Hgb 14.7 Hct 43.6 MCV 89.7 MCH 30.2 MCHC 33.7 RDW 12.5 Plt Count 232 MPV 9.4 Immature Gran % (Auto) 0.7 H Neut % (Auto) 60.1 Lymph % (Auto) 21.4 [place] % (Auto) 11.3 H Eos % (Auto) 6.0 H Baso % (Auto) 0.5 Lymph # (Auto) 1.6 [place] # (Auto) 0.9 Eos # (Auto) 0.5 H Baso # (Auto) 0.0 Abs Immat Gran (auto) 0.05 H Absolute Neuts (auto) 4.6 Absolute Nucleated RBC 0.000 Nucleated RBC % (auto) 0.0 Sodium 129 L Potassium 4.3 Chloride 93 L Carbon Dioxide 27 Anion Gap 13 BUN 11 Creatinine 1.15 Estim Creat Clear Calc 123.4 Estimated GFR > 60 POC Glucose Random Glucose 338 H D Calcium 9.9 [place] 0.52 L 04/22/22 04/22/22 04/22/22 15:18 17:37 20:43 WBC RBC Hgb Hct MCV MCH MCHC RDW Plt Count MPV Immature Gran % (Auto) Neut % (Auto) Lymph % (Auto) [place] % (Auto) Eos % (Auto) Baso % (Auto) Lymph # (Auto) [place] # (Auto) Eos # (Auto) Baso # (Auto) Abs Immat Gran (auto) Absolute Neuts (auto) Absolute Nucleated RBC Nucleated RBC % (auto) Sodium Potassium Chloride Carbon Dioxide Anion Gap BUN Creatinine Estim Creat Clear Calc Estimated GFR POC Glucose 349 H 271 H 259 H Random Glucose Calcium [place] 04/22/22 04/23/22 04/23/22 23:56 08:54 12:44 WBC RBC Hgb Hct MCV MCH MCHC RDW Plt Count MPV Immature Gran % (Auto) Neut % (Auto) Lymph % (Auto) [place] % (Auto) Eos % (Auto) Baso % (Auto) Lymph # (Auto) [place] # (Auto) Eos # (Auto) Baso # (Auto) Abs Immat Gran (auto) Absolute Neuts (auto) Absolute Nucleated RBC Nucleated RBC % (auto) Sodium Potassium Chloride Carbon Dioxide Anion Gap BUN Creatinine Estim Creat Clear Calc Estimated GFR POC Glucose 330 H 280 H 216 H Random Glucose Calcium [place] 04/23/22 04/23/22 04/24/22 17:09 21:36 08:19 WBC RBC Hgb Hct MCV MCH MCHC RDW Plt Count MPV Immature Gran % (Auto) Neut % (Auto) Lymph % (Auto) [place] % (Auto) Eos % (Auto) Baso % (Auto) Lymph # (Auto) [place] # (Auto) Eos # (Auto) Baso # (Auto) Abs Immat Gran (auto) Absolute Neuts (auto) Absolute Nucleated RBC Nucleated RBC % (auto) Sodium Potassium Chloride Carbon Dioxide Anion Gap BUN Creatinine Estim Creat Clear Calc Estimated GFR POC Glucose 183 H 254 H 267 H Random Glucose Calcium [place] DS: Summary Hospital Course Hospital Course: per 04/10 admission note: Toribio is a 36 y.o. Male who carries a dx of schizoaffective DO, depressive type. He presented to [facility] crisis on 04/10/22 after his provider from his PACT program called requesting an assessment due to pt presenting as paranoid, psychotic, not taking his medication, and hearing voices telling him to cut off his fingers and other limbs. Pt has been non-adherent with risperdal for 4-5 months. No Familia?s Order. Historically, pt is higher functioning on antipsychotic medication, i.e. good with paying rent and child support, but recently he has not paid his rent.? I evaluated the pt this evening and upon interview he reports he is still hearing voices. He is ?tired, I just wanna lay down.? Declines to engage in interview. Says he feels safe, denies SI/SIB. Sleep has been ?alright.? Mood is ?alright.?? Past Psychiatric History: -Has hx of impulsive suicide attempt- jumped off [address] and another time was found walking on railroad tracks disorganized and delusional with SI.? -Past med trials: Haldol, perphenazine, Abilify and Risperdal (TD, grimace that involved his lower lip), Ingrezza (insomnia and headaches), Zyprexa (GI side effects) -Hx of multiple psych admissions, last [facility] 12/01/2017-12/24/2017, [facility] 07/08/2017-07/14/2017, [facility] [id number], [facility] 07/22/2007-08/17/2007 Medical Evaluation Reviewed: Yes [facility] Narrative: -Hx of Psoriasis. Pt reported hearing problems in one of his ears where he hears loud noises and then nothing at all. Social History: -Pt rents a room at a house with two other people. -Pt has two children, ages 14 and 17, minimal contact with them.? -Graduated from [employer] high school in [place], [place]. Attended [employer] -Hx of being employed at [employer], and [employer]. Currently not working but engages in recreational activities with the PACT program. ? -Hx of incarceration 09/06/2016- 12/16/2018 for resisting arrest, carrying a dangerous weapon, violation of probation, and open lewd behavior (exposing himself). He was also incarcerated 11/02/2006-11/02/2007 for charges of a stolen bike, reckless driving, and operation of vehicle without documentation.? -Hx of his child's mother filing a restraining order against him in July 2020 Substance History: -Cannabis: Used cannabis two days ago to help with the voices . -Alcohol: denies abuse, last drank maybe two days ago .? -Hx of crack cocaine use. Trauma History: -Pt father left the family when he was young and when he was in elementary school Precis: Toribio is a 36 y.o. Male who carries a dx of schizoaffective DO, depressive type. He presented to [facility] crisis on 04/10/22 after his provider from his PACT program called requesting an assessment due to pt presenting as paranoid, psychotic, not taking his medication, and hearing voices telling him to cut off his fingers and other limbs. Pt has been non-adherent with risperdal for 4-5 months. No Familia?s Order. Historically, pt is higher functioning on antipsychotic medication, i.e. good with paying rent and child support, but recently he has not paid his rent.? 04/10: Pt reports hx of adverse effects on antipsychotic medication. Says he has been on cogentin and he believes this helps with sleep. Willing to restart thorazine 100 mg QHS.? 04/12: continue current tx. per Alta Kaba from [facility] pt with hx of TD with risperidone, used to be on ingrezza. 04/13: continue tx plan 04/14: pt got ativan 2 mg for agitation in the morning, declined PRN thorazine.? no other changes made to regimen.? due to lability/instability in mood, pt may best be served with the addition of a mood stabilizer such as lithium.? will attempt to discuss with pt tomorrow if he is more settled. 04/15: unable to have conversation with pt.? increase HS thorazine to 200 mg.? ativan 2 mg PRN added. 04/16: pt refusing to take more than 100 mg thorazine at HS, so dosing reduced back to 100.? at HS declined ativan, cogentin, hydrocortisone.? DC cogentin as likely unnecessary and ativan as not indicated for long-term use today.? lithium 600 BID was added. 04/17: met with pt, sis, and SW for extended period.? no change in presentation, no change in mgmt. 04/18: mtg with PACT team held, pt rescinded his 3-day notice.? slept 5.5 hours last night, up from his usual 2 or 3.? refused meds last night.? continue current regimen, encourage compliance. ? 04/19/2022: No changes to current regimen as patient feels symptoms are starting to resolve 04/20/2022: No changes, pt reports benefits on current meds. 04/21 continue current tx plan. 04/22: lithium level 0.52 on 600 BID.? will plan to increase dosing to 750 BID tomorrow.? much improved since starting lithium.? seen by medicine for new DM Dx and started on metformin and SSI. 04/23: lithium increased to 750 BID.? DM education ordered.? discharge tomorrow upon expiry of 3-day notice. 04/24: discharged upon maturation of 3-day notice. improved from admission, but AH continue, attenuated. Time Spent with Patient Time attestation: Total time spent providing and/or coordinating discharge services: Time spent: Greater than 30 minutes Discharge Plan Discharge Patient Disposition: Home Health Service Discharge Diagnosis: Schizoaffective Disorder, Bipolar Type Referrals: Camryn Gilman (Therapy) [Other] - 04/25/22 (IN OFFICE APPOINTMENT) Alta Kaba (Psychiatry) [Other] - 04/25/22 (IN OFFICE APPOINTMENT) [facility] [Other] - 1 Week ([facility] service will resume 04.24.22 for PM medication.) Toribio Alvarado MD [Physician] - 1 Week (Provider would call pt for follow up appt) Discharge Medications: New chlorpromazine 100 mg Tablet 100 mg PO BID 30 Days Qty: 60 0RF Rx Instructions: take at 5 pm and at bedtime clonidine HCl 0.2 mg Tablet 0.2 mg PO BID 30 Days Qty: 60 0RF Protocol: Hold for SBP< HOLD for SBP < : 90 metformin 500 mg Tablet 500 mg PO BIDWM 30 Days Qty: 60 0RF lithium carbonate 300 mg Tablet Extended Release 300 mg PO BID@0900,1700 30 Days Qty: 60 0RF lithium carbonate 450 mg Tablet Extended Release 450 mg PO BID@0900,1700 30 Days Qty: 60 0RF levothyroxine 25 mcg Tablet 25 mcg PO DAILY@0600 30 Days Qty: 30 0RF hydrocortisone 1 % Cream 1 appl topical BID 30 Days Qty: 100 0RF Protocol: Apply to: Apply to: hands B/L Continued benztropine 1 mg tablet 1 tab PO BID 30 Days Qty: 60 0RF Discharge Orders: Discharge Order (Routine); Ordered 04/24/22 Ordered By: Nhan Zhou Diet: diabetic diet Activity on Discharge: As tolerated Stand Alone Forms: Patient Portal Discharge page, Community Support Care Plan Goals: remain safe and stable in the outpatient treatment setting Health Concerns: new diagnosis of Diabetes Mellitus Hypertension Hypothyroid Atopic Dermatitis Plan of Treatment: take medications as directed, attend appointments as scheduled Assessment: not at imminent risk of harm to self or others Discharge Date/Time: 04/24/22 12:42
[2022-04-24 12:20] LABS: Hematocrit 42.9 % (42.0-52.0); Hemoglobin 14.4 g/dl (14.0-18.0); Mean Corpuscular HGB Conc 33.6 g/dl (31.0-36.0); Mean Corpuscular Hemoglobin 29.9 pg (27.0-33.0); Mean Corpuscular Volume 89.2 fL (80.0-98.0); Mean Platelet Volume 9.3 fL (9.4-12.4); Platelet Count 246 X10*3/uL (160-400); Red Blood Count 4.81 X10*6/uL (4.60-5.80); Red Cell Distribution Width 12.6 % (11.0-16.0); White Blood Count 9.2 X10*3/uL (4.8-10.8)
[2022-04-24 12:38] LABS: Lithium 0.81 mmol/L (0.60-1.20)
[2022-04-24 12:45] LABS: Anion Gap 15 (12-20); Blood Urea Nitrogen 14 mg/dL (9-16); Calcium 10.2 mg/dL (8.4-10.2); Carbon Dioxide 26 mmol/L (22-29); Chloride 94 mmol/L (96-108); Creatinine Clr Calc Pharmacy 126.7; Estimated Glomerular Filt Rate > 60; Glucose Random 322 mg/dL (60-115); Potassium 4.6 mmol/L (3.3-5.1); Sodium 130 mmol/L (135-145)
== END 2022-04-24 12:42 | disposition home health service (06) | DRG 885 ==
LOC: HO.ED 15:16 → HO.PADLT16 18:38
PROVIDERS: Physician Assistant; Registered Nurse; Admitting Provider Psychiatry & Neurology Psychiatry; Emergency Provider Emergency Medicine; Visit Provider Psychiatry & Neurology Psychiatry
DX: F25.1 Schizoaffective disorder, depressive type (principal); R45.851 Suicidal ideations; E87.1 Hypo-osmolality and hyponatremia; E03.9 Hypothyroidism, unspecified; L40.9 Psoriasis, unspecified; E11.9 Type 2 diabetes mellitus without complications; E30.9 Disorder of puberty, unspecified; F17.210 Nicotine dependence, cigarettes, uncomplicated; Z71.6 Tobacco abuse counseling; Z20.822 Contact with and (suspected) exposure to COVID-19; Z79.84 Long term (current) use of oral hypoglycemic drugs; Z79.890 Hormone replacement therapy; Z79.899 Other long term (current) drug therapy
CPT/HCPCS: 36415; 80048; 80053; 80061; 80076; 80178; 80307; 82077; 82607; 82746; 82947; 83036; 83735; 84439; 84443; 84484; 85025; 85027; 87635; 93005; 99285